=== PATIENT | male | born 1930 | race Caucasian/White ===

== ENCOUNTER 2018-12-13 07:34 | Emergency (ER) | payer MEDICARE, BC ==
--- NOTE | 2018-12-13 07:53 | EDM.PDOC ---
ED HPI GENERAL MEDICAL PROBLEM - General Stated Complaint: ER VISIT Time Seen by Provider: 12/13/18 07:34 Source of Information: Reports: Patient, EMS, EMS Notes Reviewed, Family History Limitations: Reports: No Limitations - History of Present Illness INITIAL COMMENTS - FREE TEXT/NARRATIVE: Patient comes in the emergency department with EMS with complaint of dizziness. Patient was getting out of bed and abruptly became dizzy and needed to sit back down. He states that going from laying to sitting position she became extremely dizzy. When he sat there for a few minutes the dizziness began to resolve however he's never had this happen before so he contacted EMS. He denies any nausea, vomiting, chest pain, shortness of breath, increased swelling, vision changes, lightheadedness, or headache. Patient denies any recent illnesses. Onset: Today, Sudden Severity: Mild Improves with: Reports: None Worsens with: Reports: None Associated Symptoms: Reports: No Other Symptoms - Related Data Allergies Allergy/AdvReac Type Severity Reaction Status Date / Time fluvastatin sodium Allergy Other Verified 12/13/18 08:04 [From Lescol] niacin Allergy Other Verified 12/13/18 08:04 [From Niaspan Extended-Release] simvastatin [From Zocor] Allergy Other Verified 12/13/18 08:04 levofloxacin [From Levaquin] AdvReac Nausea and Verified 12/13/18 08:04 Vomiting Home Meds: Home Meds Multivitamin [Multi-Vitamin Daily] 1 each PO DAILY 10/23/13 [History] [place]-3 Fatty Acids [Fish Oil] 1,000 mg PO DAILY 10/23/13 [History] Potassium Chloride [Klor-Con M20] 20 meq PO DAILY 10/23/13 [History] Pravastatin [Pravachol] 40 mg PO ASDIRECTED 10/23/13 [History] amLODIPine [Norvasc] 5 mg PO BEDTIME 10/23/13 [History] Sennosides [Senna] 1 tab PO DAILY PRN 03/28/14 [History] Warfarin [Coumadin] 5 mg PO ASDIRECTED 03/28/14 [History] Omeprazole [Prilosec] 1 tab PO ACDINNER 05/08/14 [History] Albuterol [Ventolin HFA] 1 - 2 puff INH Q4H PRN 11/13/14 [History] Carvedilol 12.5 mg PO BID 11/13/14 [History] Furosemide 20 mg PO DAILY 11/13/14 [History] Sucralfate [Carafate] 1 tab PO DAILY 11/13/14 [History] Budesonide/Formoterol Fumarate [Symbicort 80-4.5 Mcg Inhaler] 2 puff INH BID [History] Dextran 70/Hypromellose [Artificial Tears] 1 drop EYEBOTH Q4H PRN 05/21/16 [ History] Ferrous Sulfate 65 mg PO DAILY 05/21/16 [History] Lisinopril [Prinivil] 20 mg PO DAILY 05/21/16 [History] Oxybutynin 5 mg PO DAILY 05/21/16 [History] Phytonadione [Vitamin K] 100 mcg PO DAILY 05/21/16 [History] Diclofenac Sodium [Voltaren 1%] 100 gm TOP ASDIRECTED PRN 08/31/18 [History] Dicyclomine [Bentyl] 10 mg PO ASDIRECTED 08/31/18 [History] Lidocaine 5% [Lidoderm 5%] 1 patch TOP DAILY PRN 08/31/18 [History] Past Medical History HEENT History: Reports: Cataract, Other (See Below) Other HEENT History: PINGUECULA (BENIGN THIN GROWTH OF TISSUE OVER SCLERA). 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 MYOPIA. ASTIGMATISM Cardiovascular History: Reports: Afib, CAD, Heart Failure, High Cholesterol, Hypertension, Pulmonary Hypertension Other Cardiovascular History: STENOSIS OF LEFT CAROTID ARTERY. ENDOCARDITIS. VENOUS INSUFFICIANCY. AORTIC STENOSIS Respiratory History: Reports: Asthma, COPD, Sleep Apnea, SOB Other Respiratory History: PULMONARY HYPERINFLATION Other Gastrointestinal History: SMALL BOWEL OBSTRUCTION. HERNIA. DIARRHEA Genitourinary History: Other Genitourinary History: BPH (BENIGN PROSTATIC HYPERPLASIA). CHRONIC KIDNEY DISEASE, STAGE 2 (MILD). MALIGNANT NEOPLASM PROSTATE Musculoskeletal History: Reports: Back Pain, Chronic Other Musculoskeletal History: FACET HYPERTROPHY OF LUMBAR REGION. LUMBAR DEGENERATIVE DISC DISEASE Neurological History: Reports: CVA Other Neuro History: HERNIA CEREBRI Psychiatric History: Reports: Other (See Below) Other Psychiatric History: PAIN MEDICATION AGREEMENT Endocrine/Metabolic History: Reports: Obesity/BMI 30+, Other (See Below) Other Endocrine/Metabolic History: PREDIABETES Hematologic History: Reports: Anemia Other Hematologic History: VITAMIN D DEFICIENCY. LEUKOCYTOSIS Oncologic (Cancer) History: Reports: Prostate Other Oncologic History: HX OF CHEMOTHERAPY. HX OF RADIATION THERAPY. BASAL CELL CARCINOMA OF SKIN. RECTAL CANCER - Past Surgical History Cardiovascular Surgical History: Reports: Coronary Artery Bypass GI Surgical History: Reports: Cholecystectomy, Colonoscopy, Colostomy, EGD, Hernia Repair/Other Social & Family History - Family History Family Medical History: Noncontributory - Caffeine Use Caffeine Use: ED ROS GENERAL - Review of Systems Review Of Systems: See Below Constitutional: Reports: No Symptoms HEENT: Reports: No Symptoms Respiratory: Reports: No Symptoms Cardiovascular: Reports: No Symptoms Endocrine: Reports: No Symptoms GI/Abdominal: Reports: No Symptoms : Reports: No Symptoms Musculoskeletal: Reports: No Symptoms Skin: Reports: No Symptoms Neurological: Reports: Dizziness. Denies: Headache, Numbness, Paresthesia, Pre- Existing Deficit, Seizure, Syncope, Tingling, Tremors, Trouble Speaking, Difficulty Walking, Weakness Psychiatric: Reports: No Symptoms Hematologic/Lymphatic: Reports: No Symptoms Immunologic: Reports: No Symptoms ED EXAM, GENERAL - Physical Exam Exam: See Below Exam Limited By: No Limitations General Appearance: Alert, WD/WN, No Apparent Distress Ear Exam: Right Ear: TM Bulging Nose: Normal Inspection, Normal Mucosa Throat/Mouth: Normal Inspection, Normal Lips Head: Atraumatic, Normocephalic Neck: Normal Inspection, Supple, Non-Tender Respiratory/Chest: No Respiratory Distress, Lungs Clear, No Accessory Muscle Use , Chest Non-Tender Cardiovascular: Normal Peripheral Pulses, Regular Rate, Rhythm Back Exam: Normal Inspection, Full Range of Motion Extremities: Normal Inspection, Normal Range of Motion, Normal Capillary Refill Neurological: Alert, Oriented Psychiatric: Normal Affect, Normal Mood Skin Exam: Warm, Dry, Intact, Normal Color Course - Orders/Labs/Meds Orders: Active Orders 24 hr Category Date Time Status Fluticasone Propionate [Flonase] Med 12/13/18 08:00 Active 1 gm NASBOTH DAILY Medication Orders Fluticasone Propionate (Flonase) 1 gm NASBOTH DAILY EDGAR Meds: Medications Generic Name Dose Route Start Last Admin Trade Name Freq PRN Reason Stop Dose Admin Fluticasone Propionate 1 gm 12/13/18 08:00 Flonase NASBOTH DAILY EDGAR Discontinued Medications Generic Name Dose Route Start Last Admin Trade Name Freq PRN Reason Stop Dose Admin Meclizine HCl 25 mg 12/13/18 07:45 12/13/18 07:54 Antivert PO 12/13/18 07:46 25 mg ONETIME ONE Administration Ondansetron HCl 4 mg 12/13/18 07:52 12/13/18 07:55 Zofran Odt PO 12/13/18 07:53 4 mg ONETIME ONE Administration - Re-Assessments/Exams Free Text/Narrative Re-Assessment/Exam: 12/13/18 08:37 pt feels better and is not dizzy. Able to get up out of bed without difficult and walked on his own to the bathroom. He ate breakfast and tolerated well without complications. Pt would like to go home feels he is back to his baseline. Departure - Departure Time of Disposition: 08:40 Disposition: Home, Self-Care 01 Condition: Good Clinical Impression: Vertigo Acute middle ear effusion Qualifiers: Laterality: bilateral Qualified Code(s): H65.193 - Other acute nonsuppurative otitis media, bilateral - Discharge Information *PRESCRIPTION DRUG MONITORING PROGRAM REVIEWED*: Not Applicable *COPY OF PRESCRIPTION DRUG MONITORING REPORT IN PATIENT CEE: Not Applicable Instructions: Vertigo, [id number], Motion Sickness, Dizziness, [id number] Referrals: Yolanda Nassar, [Primary Care Provider] - Additional Instructions: 1. Ensure you are not dizzy prior to standing up to help prevent falls 2. Take flonase 2 times a day for 4 days to help reduce the fluid behind the ear 3. Can take meclizine 25mg tab every 6 hours as needed if dizziness/vertigo returns 4. Activity and diet as tolerated 5. Rise from the laying and seated position slowly to help prevent dizziness 6. If dizziness returns see your PCP for a referral to physical therapy 7. Follow up as needed 8. Call with any questions or concerns - Problem List Review Problem List Initiated/Reviewed/Updated: Yes - My Orders Last 24 Hours: My Active Orders 12/13/18 08:00 Fluticasone Propionate [Flonase] 1 gm NASBOTH DAILY - Assessment/Plan Last 24 Hours: My Active Orders 12/13/18 08:00 Fluticasone Propionate [Flonase] 1 gm NASBOTH DAILY Assessment:: 1. Dizziness Plan: 1. Meclizine and zofran was ordered to help with dizziness 2. Breakfast was ordered 3.
[2018-12-13] MEDS: Meclizine 25 MG Tab PO ONE (07:54)
[2018-12-13] MEDS: Ondansetron 4 MG Tab.DIS PO ONE (07:55)
[2018-12-13] MEDS ORDERED: Meclizine 25 MG Tab ONE (08:44)
[2018-12-13] MEDS: Fluticasone Propionate Nasal Spray 16 GM Bottle NASBOTH SCH (08:50)
[2018-12-13 11:44] VITALS: BP 148/90
== END 2018-12-13 09:05 | disposition home or self-care (01) ==
LOC: VM.ED 07:34
DX: R42 Dizziness and giddiness (principal); H65.193 Other acute nonsuppurative otitis media, bilateral; I11.0 Hypertensive heart disease with heart failure; I50.9 Heart failure, unspecified; I48.91 Unspecified atrial fibrillation; E78.00 Pure hypercholesterolemia, unspecified; J44.9 Chronic obstructive pulmonary disease, unspecified; Z86.73 Personal history of transient ischemic attack (TIA), and cerebral infarction without residual deficits; Z79.01 Long term (current) use of anticoagulants; Z79.899 Other long term (current) drug therapy; Z88.1 Allergy status to other antibiotic agents; Z88.8 Allergy status to other drugs, medicaments and biological substances
CPT/HCPCS: 99283-GF; 99284; A9270-GY

== ENCOUNTER 2019-03-25 07:16 | Observation (INO) | payer MEDICARE, BC ==
[2019-03-25] MEDS ORDERED: Carvedilol 12.5 MG Tab PO ONE (07:46)
--- NOTE | 2019-03-25 07:58 | EDM.PDOC ---
ED HPI GENERAL MEDICAL PROBLEM - General Chief Complaint: Cardiovascular Problem Stated Complaint: HIGH HEART RATE Time Seen by Provider: 03/25/19 07:20 Source of Information: Reports: Patient History Limitations: Reports: No Limitations - History of Present Illness INITIAL COMMENTS - FREE TEXT/NARRATIVE: Pt. presents to ER with complaints of rapid heart rate and chest pain that lasted approx. 5 min. Pt. states that the symptoms lasted approx. 5 min and woke him from his sleep. He states that he has a history of a-fib and is anticoagulated with coumadin. He states that he is on coreg for rate control. He states that the chest pain or palpitations both resolved prior to arrival to ER. He states that the chest pain did not radiate into jaw, arms, neck or back. He was not short of breath. He states that he has has symptoms like this in the past but they have resolved without any intervention or visit to ER. He states that the last time this happened was approx. 1 month ago. He has not seen cardiology or had any follow-up since this event. Onset: Today Location: Reports: Chest Quality: Reports: Ache Severity: Moderate - Related Data Allergies Allergy/AdvReac Type Severity Reaction Status Date / Time fluvastatin sodium Allergy Other Verified 12/13/18 08:04 [From Lescol] niacin Allergy Other Verified 12/13/18 08:04 [From Niaspan Extended-Release] simvastatin [From Zocor] Allergy Other Verified 12/13/18 08:04 levofloxacin [From Levaquin] AdvReac Nausea and Verified 12/13/18 08:04 Vomiting Home Meds: Home Meds Multivitamin [Multi-Vitamin Daily] 1 each PO DAILY 10/23/13 [History] [place]-3 Fatty Acids [Fish Oil] 1,000 mg PO DAILY 10/23/13 [History] Potassium Chloride [Klor-Con M20] 20 meq PO DAILY 10/23/13 [History] Pravastatin [Pravachol] 40 mg PO ASDIRECTED 10/23/13 [History] amLODIPine [Norvasc] 2.5 mg PO DAILY 10/23/13 [History] Sennosides [Senna] 1 tab PO DAILY PRN 03/28/14 [History] Warfarin [Coumadin] 5 mg PO ASDIRECTED 03/28/14 [History] Omeprazole [Prilosec] 1 tab PO ACDINNER 05/08/14 [History] Albuterol [Ventolin HFA] 1 - 2 puff INH Q4H PRN 11/13/14 [History] Carvedilol 12.5 mg PO BID 11/13/14 [History] Furosemide 20 mg PO DAILY 11/13/14 [History] Sucralfate [Carafate] 1 tab PO DAILY 11/13/14 [History] Budesonide/Formoterol Fumarate [Symbicort 80-4.5 Mcg Inhaler] 2 puff INH BID [History] Dextran 70/Hypromellose [Artificial Tears] 1 drop EYEBOTH Q4H PRN 05/21/16 [ History] Ferrous Sulfate 65 mg PO DAILY 05/21/16 [History] Lisinopril [Prinivil] 20 mg PO DAILY 05/21/16 [History] Oxybutynin 5 mg PO DAILY 05/21/16 [History] Phytonadione [Vitamin K] 100 mcg PO DAILY 05/21/16 [History] Diclofenac Sodium [Voltaren 1%] 100 gm TOP ASDIRECTED PRN 08/31/18 [History] Dicyclomine [Bentyl] 10 mg PO QID PRN 08/31/18 [History] Lidocaine 5% [Lidoderm 5%] 1 patch TOP DAILY PRN 08/31/18 [History] Ascorbic Acid [Vitamin C] 250 mg DAILY 03/25/19 [History] Past Medical History HEENT History: Reports: Cataract, Other (See Below) Other HEENT History: PINGUECULA (BENIGN THIN GROWTH OF TISSUE OVER SCLERA). 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 MYOPIA. ASTIGMATISM Cardiovascular History: Reports: Afib, CAD, Heart Failure, High Cholesterol, Hypertension, Pulmonary Hypertension Other Cardiovascular History: STENOSIS OF LEFT CAROTID ARTERY. ENDOCARDITIS. VENOUS INSUFFICIANCY. AORTIC STENOSIS Respiratory History: Reports: Asthma, COPD, Sleep Apnea, SOB Other Respiratory History: PULMONARY HYPERINFLATION Other Gastrointestinal History: SMALL BOWEL OBSTRUCTION. HERNIA. DIARRHEA Genitourinary History: Other Genitourinary History: BPH (BENIGN PROSTATIC HYPERPLASIA). CHRONIC KIDNEY DISEASE, STAGE 2 (MILD). MALIGNANT NEOPLASM PROSTATE Musculoskeletal History: Reports: Back Pain, Chronic Other Musculoskeletal History: FACET HYPERTROPHY OF LUMBAR REGION. LUMBAR DEGENERATIVE DISC DISEASE Neurological History: Reports: CVA Other Neuro History: HERNIA CEREBRI Psychiatric History: Reports: Other (See Below) Other Psychiatric History: PAIN MEDICATION AGREEMENT Endocrine/Metabolic History: Reports: Obesity/BMI 30+, Other (See Below) Other Endocrine/Metabolic History: PREDIABETES Hematologic History: Reports: Anemia Other Hematologic History: VITAMIN D DEFICIENCY. LEUKOCYTOSIS Oncologic (Cancer) History: Reports: Prostate Other Oncologic History: HX OF CHEMOTHERAPY. HX OF RADIATION THERAPY. BASAL CELL CARCINOMA OF SKIN. RECTAL CANCER - Past Surgical History Head Surgeries/Procedures: Reports: None Cardiovascular Surgical History: Reports: Coronary Artery Bypass GI Surgical History: Reports: Cholecystectomy, Colonoscopy, Colostomy, EGD, Hernia Repair/Other Social & Family History - Family History Family Medical History: Noncontributory - Caffeine Use Caffeine Use: ED ROS GENERAL - Review of Systems Review Of Systems: See Below Constitutional: Reports: No Symptoms HEENT: Reports: No Symptoms Respiratory: Reports: No Symptoms Cardiovascular: Reports: Chest Pain, Palpitations Endocrine: Reports: No Symptoms GI/Abdominal: Reports: No Symptoms : Reports: No Symptoms Musculoskeletal: Reports: No Symptoms Skin: Reports: No Symptoms Neurological: Reports: No Symptoms Psychiatric: Reports: No Symptoms Hematologic/Lymphatic: Reports: No Symptoms Immunologic: Reports: No Symptoms ED EXAM, GENERAL - Physical Exam Exam: See Below Exam Limited By: No Limitations General Appearance: Alert, WD/WN, No Apparent Distress Throat/Mouth: Normal Inspection, Normal Lips, Normal Teeth, Normal Gums, Normal Oropharynx, Normal Voice, No Airway Compromise Head: Atraumatic, Normocephalic Neck: Normal Inspection, Supple, Non-Tender, Full Range of Motion Respiratory/Chest: No Respiratory Distress, Lungs Clear, Normal Breath Sounds, No Accessory Muscle Use, Chest Non-Tender Cardiovascular: Normal Peripheral Pulses, No JVD, Systolic Murmur, Irregularly Irregular Peripheral Pulses: 3+: Radial (R) GI/Abdominal: Normal Bowel Sounds, Soft, Non-Tender, No Organomegaly, No Distention, No Mass (Male) Exam: Deferred Rectal (Males) Exam: Deferred Back Exam: Normal Inspection Extremities: Normal Inspection, Normal Range of Motion, Non-Tender, Normal Capillary Refill Neurological: Alert, Oriented, CN II-XII Intact, Normal Cognition, No Motor/ Sensory Deficits Psychiatric: Normal Affect, Normal Mood Skin Exam: Warm, Dry, Intact, No Rash, Pallor EKG INTERPRETATION Rhythm: A-Fib Course - Vital Signs Last Recorded V/S: Last Vital Signs Temp 36.8 C 03/25/19 07:16 Pulse 72 03/25/19 09:27 Resp 16 03/25/19 09:27 BP 165/92 H 03/25/19 09:27 Pulse Ox 92 L 03/25/19 07:16 - Orders/Labs/Meds Orders: Active Orders 24 hr Category Date Time Status Patient Status [ADT] Routine ADT 03/25/19 09:40 Ordered EKG Documentation Completion [RC] STAT Care 03/25/19 07:32 Active UA W/MICROSCOPIC [URIN] Stat Lab 03/25/19 08:26 Ordered Labs: Laboratory Tests 03/25/19 03/25/19 03/25/19 Range/Units 07:19 07:19 07:19 WBC 16.9 H (4.0-10.0) x10^3/uL RBC 5.54 (4.5-6.0) x10^6/uL Hgb 15.6 (14.0-18.0) g/dL Hct 44.9 (40.0-52.0) % MCV 81.0 D (78.0-93.0) fL MCH 28.2 (26.0-32.0) pg MCHC 34.7 (32.0-36.0) g/dL RDW Coeff of Roberta 14.9 (10.0-15.0) % Plt Count 244 (130-400) x10^3/uL Add Manual Diff Yes Neutrophils % (Manual) 46 L (50-80) % Lymphocytes % (Manual) 45 (25-50) % Monocytes % (Manual) 4 (2-11) % Eosinophils % (Manual) 1 (0-4) % Metamyelocytes % 3 H (0) % Myelocytes % 1 H (0) % Hypersegmented Neuts Few H Platelet Estimate Adequate PT 18.2 H (10.0-12.8) SEC INR 1.6 L (2.0-3.5) Sodium 141 (136-145) mmol/L Potassium 3.2 L (3.5-5.1) mmol/L Chloride 101 (98-107) mmol/L Carbon Dioxide 29 (21-32) mmol/L Anion Gap 14.2 (10-20) mmol/L BUN 16 (7-18) mg/dL Creatinine 0.8 (0.70-1.30) mg/dL Est Cr Clr Drug Dosing TNP Estimated GFR (MDRD) > 60 Glucose 145 H (74-106) mg/dL Lactic Acid (0.4-2.0) mmol/L Calcium 8.9 (8.5-10.1) mg/dL Corrected Calcium 8.98 (8.5-10.1) mg/dL Phosphorus 3.4 (2.6-4.7) mg/dL Magnesium 1.8 (1.8-2.4) mg/dL Total Bilirubin 1.2 H (0.2-1.0) mg/dL AST 12 L (15-37) U/L ALT 22 (16-63) U/L Alkaline Phosphatase 74 (46-116) U/L Troponin I < 0.017 (<=0.056) ng/mL Total Protein 7.8 (6.4-8.2) g/dL Albumin 3.9 (3.4-5.0) g/dL Globulin 3.9 Albumin/Globulin Ratio 1.00 TSH, Ultra Sensitive 1.270 (0.358-3.74) uIU/mL 03/25/ Range/Units 07:19 WBC (4.0-10.0) x10^3/uL RBC (4.5-6.0) x10^6/uL Hgb (14.0-18.0) g/dL Hct (40.0-52.0) % MCV (78.0-93.0) fL MCH (26.0-32.0) pg MCHC (32.0-36.0) g/dL RDW Coeff of Roberta (10.0-15.0) % Plt Count (130-400) x10^3/uL Add Manual Diff Neutrophils % (Manual) (50-80) % Lymphocytes % (Manual) (25-50) % Monocytes % (Manual) (2-11) % Eosinophils % (Manual) (0-4) % Metamyelocytes % (0) % Myelocytes % (0) % Hypersegmented Neuts Platelet Estimate PT (10.0-12.8) SEC INR (2.0-3.5) Sodium (136-145) mmol/L Potassium (3.5-5.1) mmol/L Chloride (98-107) mmol/L Carbon Dioxide (21-32) mmol/L Anion Gap (10-20) mmol/L BUN (7-18) mg/dL Creatinine (0.70-1.30) mg/dL Est Cr Clr Drug Dosing Estimated GFR (MDRD) Glucose (74-106) mg/dL Lactic Acid 1.5 (0.4-2.0) mmol/L Calcium (8.5-10.1) mg/dL Corrected Calcium (8.5-10.1) mg/dL Phosphorus (2.6-4.7) mg/dL Magnesium (1.8-2.4) mg/dL Total Bilirubin (0.2-1.0) mg/dL AST (15-37) U/L ALT (16-63) U/L Alkaline Phosphatase (46-116) U/L Troponin I (<=0.056) ng/mL Total Protein (6.4-8.2) g/dL Albumin (3.4-5.0) g/dL Globulin Albumin/Globulin Ratio TSH, Ultra Sensitive (0.358-3.74) uIU/mL Meds: Medications Discontinued Medications Generic Name Dose Route Start Last Admin Trade Name Freq PRN Reason Stop Dose Admin Carvedilol 12.5 mg 03/25/19 07:46 03/25/19 08:14 Coreg PO 03/25/19 07:47 12.5 mg ONETIME ONE Administration Departure - Departure Time of Disposition: 09:46 Disposition: Refer to Observation Clinical Impression: Palpitations, Chronic atrial fibrillation with RVR, Subtherapeutic international normalized ratio (INR) - Discharge Information Referrals: Yolanda Nassar DO [Primary Care Provider] - Forms: ED Department Discharge - Problem List Review Problem List Initiated/Reviewed/Updated: Yes - My Orders Last 24 Hours: My Active Orders 03/25/19 07:32 EKG Documentation Completion [RC] STAT 03/25/19 08:26 UA W/MICROSCOPIC [URIN] Stat 03/25/19 09:40 Patient Status [ADT] Routine - Assessment/Plan Last 24 Hours: My Active Orders 03/25/19 07:32 EKG Documentation Completion [RC] STAT 03/25/19 08:26 UA W/MICROSCOPIC [URIN] Stat 03/25/19 09:40 Patient Status [ADT] Routine Plan: I spoke with Dr. Garcia, [facility]. She advised stopping to Coreg and starting Toprol XL 50mg. every AM and 25mg at night. To note, he was given his Coreg this AM already, so will start the Toprol XL tonight. He will be bridged with lovenox as his coagulation is subtheraputic. Dr. Garcia also suggested oral lopressor 25mg PRN if he is experiencing palpitations as home. Pt. will be admitted observation. Dr. Nassar will be admitting the patient and will round on him early this afternoon. Pt. is a code 1.
[2019-03-25 08:16] LABS: CHLORIDE,CL 101 mmol/L (98-107); SODIUM,NA 141 mmol/L (136-145)
[2019-03-25 08:17] LABS: ANION GAP 14.2 mmol/L (10-20)
--- NOTE | 2019-03-25 08:27 | CR ---
[id number] RAD/RAD Chest PA or AP 1V EXAM: RAD Chest PA or AP 1V INDICATION: TACHYCARDIA,CHEST PAIN. COMPARISON: August 31, 2018. DISCUSSION: Cardiomediastinal silhouette is unchanged in size and contour. No infiltrate, effusion, pneumothorax, or edema. IMPRESSION: No acute findings. Saw Myers MD 03/25/19 0826 Thank you for allowing us to participate in the care of your patient.
[2019-03-25] MEDS ORDERED: DICYCLOMINE 10 MG PO PRN (10:08)
[2019-03-25] MEDS ORDERED: Sennosides 8.6 MG Tab PO PRN (10:08)
[2019-03-25] MEDS ORDERED: amLODIPine 2.5 MG Tab PO SCH (10:09)
[2019-03-25] MEDS ORDERED: Potassium Chloride 20 MEQ Tab.ER PO SCH ×2 (10:15→13:15)
[2019-03-25] MEDS ORDERED: Furosemide 20 MG Tab PO SCH (10:15)
[2019-03-25] MEDS: Enoxaparin 100 MG/1 ML Syringe SUBCUT SCH ×2 (11:18→19:47)
[2019-03-25] MEDS: Ferrous Sulfate 325 MG Tab PO SCH (11:18)
[2019-03-25] MEDS: Oxybutynin 5 MG Tab PO SCH (11:19)
[2019-03-25] MEDS: Ascorbic Acid 500 MG Tab PO SCH (11:19)
[2019-03-25] MEDS ORDERED: FUROSEMIDE 40 MG PO SCH (11:20)
[2019-03-25] MEDS ORDERED: amLODIPine 2.5 MG Tab PO ONE (12:00)
[2019-03-25] MEDS: LISINOPRIL 40 MG PO SCH (12:06)
[2019-03-25] MEDS: SUCRALFATE 1 GM PO SCH (12:06)
--- NOTE | 2019-03-25 16:27 | PCM.HP ---
H&P History of Present Illness - General Date of Service: 03/25/19 Admit Problem/Dx: Admission Diagnosis/Problem Admission Diagnosis/Problem Atrial fibrillation with rapid ventricular response Source of Information: Patient History Limitations: Reports: No Limitations - History of Present Illness Initial Comments - Free Text/Narative: Patient presented to the ER today for complaints of chest pain and racing heart rate, decision made to admit for observation. Patient states he woke up at 4 AM with a "bounding heart rate" which lasted for 5 minutes, followed up "sharp chest pain" which last for another 5 minutes. Patient states that his heart was racing so fast that he was unable to take his pulse at the time. He states he felt confused following this event and when he tried to get up to go to the bathroom, he was very lightheaded. He then decided to drive himself into the ER to be further evaluated. Since the episode this morning, patient denies any further racing HR or chest pain. Patient states that he did not take any medication for his chest pain. Patient states he has been taking his medications as they are prescribed, but was previously off of his Coumadin for awhile because he was supposed to have surgery last week, which got canceled, but he restarted him Coumadin a couple of days ago. Onset of Symptoms: Reports: Today Symptom Onset Date: 03/25/19 Symptom Onset Time: 04:00 Duration of Symptoms: Reports: Minutes: (5 min. increased HR; 5 min. of chest pain) Location: Reports: Chest Quality: Reports: Sharp Severity: Severe Improves with: Reports: None Worsens with: Reports: None Context: Reports: Rest (patient states he was sleeping when this event began) Associated Symptoms: Reports: Confusion, Chest Pain - Related Data Allergies/Adverse Reactions: Allergies Allergy/AdvReac Type Severity Reaction Status Date / Time levofloxacin [From Levaquin] Allergy Unknown Other Verified 03/25/19 11:56 fluvastatin sodium AdvReac Unknown Other Verified 03/25/19 11:56 [From Lescol] niacin AdvReac Unknown Other Verified 03/25/19 11:56 [From Niaspan Extended-Release] simvastatin [From Zocor] AdvReac Unknown Other Verified 03/25/19 11:56 Home Medications: Home Meds Multivitamin [Multi-Vitamin Daily] 1 each PO DAILY 10/23/13 [History] Cal Nev Ari-3 Fatty Acids [Fish Oil] 1,000 mg PO DAILY 10/23/13 [History] Potassium Chloride [Klor-Con M20] 20 meq PO DAILY 10/23/13 [History] Pravastatin [Pravachol] 40 mg PO MOTH@199910/23/13 [History] amLODIPine [Norvasc] 5 mg PO DAILY 10/23/13 [History] Sennosides [Senna] 8.6 mg PO DAILY PRN 03/28/14 [History] Warfarin [Coumadin] 5 mg PO SUTUWETHFRSA@199903/28/14 [History] Omeprazole [Prilosec] 1 tab PO ACDINNER 05/08/14 [History] Albuterol [Ventolin HFA] 1 - 2 puff INH Q4H PRN 11/13/14 [History] Carvedilol 12.5 mg PO BID 11/13/14 [History] Furosemide 20 mg PO DAILY 11/13/14 [History] Sucralfate [Carafate] 1 gram PO DAILY 11/13/14 [History] Budesonide/Formoterol Fumarate [Symbicort 80-4.5 Mcg Inhaler] 2 puff INH BID [History] Dextran 70/Hypromellose [Artificial Tears] 1 drop EYEBOTH Q4H PRN 05/21/16 [ History] Lisinopril [Prinivil] 20 mg PO DAILY 05/21/16 [History] Oxybutynin 5 mg PO DAILY 05/21/16 [History] Phytonadione [Vitamin K] 100 mcg PO DAILY 05/21/16 [History] Diclofenac Sodium [Voltaren 1%] 1 dose TOP ASDIRECTED PRN 08/31/18 [History] Dicyclomine [Bentyl] 10 mg PO QID PRN 08/31/18 [History] Lidocaine 5% [Lidoderm 5%] 1 patch TOP DAILY PRN 08/31/18 [History] Ascorbic Acid [Vitamin C] 250 mg PO DAILY 03/25/19 [History] Ferrous Sulfate [Iron] 325 mg PO DAILY 03/25/19 [History] Lactulose [Chronulac] 15 ml PO DAILY PRN 03/25/19 [History] Warfarin [Coumadin] 2.5 mg PO MO@199903/25/19 [History] Past Medical History HEENT History: Reports: Cataract, Other (See Below) Other HEENT History: PINGUECULA (BENIGN THIN GROWTH OF TISSUE OVER SCLERA). 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 MYOPIA. ASTIGMATISM Cardiovascular History: Reports: Afib, CAD, Heart Failure, High Cholesterol, Hypertension, Pulmonary Hypertension Other Cardiovascular History: STENOSIS OF LEFT CAROTID ARTERY. ENDOCARDITIS. VENOUS INSUFFICIANCY. AORTIC STENOSIS Respiratory History: Reports: Asthma, COPD, Sleep Apnea, SOB Other Respiratory History: PULMONARY HYPERINFLATION Other Gastrointestinal History: SMALL BOWEL OBSTRUCTION. HERNIA. DIARRHEA Genitourinary History: Other Genitourinary History: BPH (BENIGN PROSTATIC HYPERPLASIA). CHRONIC KIDNEY DISEASE, STAGE 2 (MILD). MALIGNANT NEOPLASM PROSTATE Musculoskeletal History: Reports: Back Pain, Chronic Other Musculoskeletal History: FACET HYPERTROPHY OF LUMBAR REGION. LUMBAR DEGENERATIVE DISC DISEASE Neurological History: Reports: CVA Other Neuro History: HERNIA CEREBRI Psychiatric History: Reports: Other (See Below) Other Psychiatric History: PAIN MEDICATION AGREEMENT Endocrine/Metabolic History: Reports: Obesity/BMI 30+, Other (See Below) Other Endocrine/Metabolic History: PREDIABETES Hematologic History: Reports: Anemia Other Hematologic History: VITAMIN D DEFICIENCY. LEUKOCYTOSIS Oncologic (Cancer) History: Reports: Prostate Other Oncologic History: HX OF CHEMOTHERAPY. HX OF RADIATION THERAPY. BASAL CELL CARCINOMA OF SKIN. RECTAL CANCER - Past Surgical History Head Surgeries/Procedures: Reports: None Cardiovascular Surgical History: Reports: Coronary Artery Bypass GI Surgical History: Reports: Cholecystectomy, Colonoscopy, Colostomy, EGD, Hernia Repair/Other Social & Family History - Family History Family Medical History: Noncontributory (Both parents .) - Tobacco Use Smoking Status *Q: Never Smoker - Caffeine Use Caffeine Use: Reports: Coffee - Alcohol Use Alcohol Use in Last Twelve Months: No - Recreational Drug Use Recreational Drug Use: No H&P Review of Systems - Review of Systems: Review Of Systems: See Below General: Reports: No Symptoms HEENT: Reports: No Symptoms Pulmonary: Reports: No Symptoms Cardiovascular: Reports: Chest Pain, Palpitations, Orthopnea, Edema, Lightheadedness Gastrointestinal: Reports: Abdominal Pain Genitourinary: Reports: Incontinence Musculoskeletal: Reports: Shoulder Pain (Left shoulder pain; pts states has been ongoing for 8 months) Skin: Reports: No Symptoms Psychiatric: Reports: No Symptoms Neurological: Reports: Confusion Hematologic/Lymphatic: Reports: No Symptoms Immunologic: Reports: No Symptoms Exam - Exam Exam: See Below - Vital Signs Vital Signs: Last Vital Signs Temp 97.7 F 03/25/19 14:00 Pulse 65 03/25/19 14:00 Resp 16 03/25/19 09:27 BP 114/57 L 03/25/19 14:00 Pulse Ox 98 03/25/19 14:00 Weight: 103.873 kg - Exam General: Alert, Oriented, Cooperative HEENT: Conjunctiva Clear, EOMI, Hearing Intact, Mucosa Moist & [place], Nares Patent, Normal Nasal Septum, Pupils Equal Neck: Supple, Trachea Midline, +2 Carotid Pulse wo Bruit, Full Range of Motion Lungs: Clear to Auscultation, Normal Respiratory Effort Cardiovascular: Regular Rate, Irregular Rhythm (atrial fibrillation) GI/Abdominal Exam: Normal Bowel Sounds, Soft, Non-Tender, Other (colostomy in place) Back Exam: Normal Inspection, Full Range of Motion Extremities: Normal Inspection, Normal Range of Motion, Non-Tender, Normal Capillary Refill, Pedal Edema (mild edema to right ankle) Peripheral Pulses: 2+: Carotid (L), Carotid (R), Radial (L), Radial (R), Popliteal (L), Popliteal (R), Dorsalis Pedis (L), Dorsalis Pedis (R) Skin: Warm, Dry, Intact Neurological: Normal Speech, Normal Tone Neuro Extensive - Mental Status: Alert, Oriented x3, Normal Mood/Affect, Normal Cognition, Memory Intact Psychiatric: Alert, Normal Affect, Normal Mood - Patient Data Lab Results Last 24 hrs: Laboratory Results - last 24 hr 03/25/19 03/25/19 03/25/19 Range/Units 07:19 07:19 07:19 WBC 16.9 H (4.0-10.0) x10^3/uL RBC 5.54 (4.5-6.0) x10^6/uL Hgb 15.6 (14.0-18.0) g/dL Hct 44.9 (40.0-52.0) % MCV 81.0 D (78.0-93.0) fL MCH 28.2 (26.0-32.0) pg MCHC 34.7 (32.0-36.0) g/dL RDW Coeff of Roberta 14.9 (10.0-15.0) % Plt Count 244 (130-400) x10^3/uL Add Manual Diff Yes Neutrophils % (Manual) 46 L (50-80) % Lymphocytes % (Manual) 45 (25-50) % Monocytes % (Manual) 4 (2-11) % Eosinophils % (Manual) 1 (0-4) % Metamyelocytes % 3 H (0) % Myelocytes % 1 H (0) % Hypersegmented Neuts Few H Platelet Estimate Adequate PT 18.2 H (10.0-12.8) SEC INR 1.6 L (2.0-3.5) Sodium 141 (136-145) mmol/L Potassium 3.2 L (3.5-5.1) mmol/L Chloride 101 (98-107) mmol/L Carbon Dioxide 29 (21-32) mmol/L Anion Gap 14.2 (10-20) mmol/L BUN 16 (7-18) mg/dL Creatinine 0.8 (0.70-1.30) mg/dL Est Cr Clr Drug Dosing TNP Estimated GFR (MDRD) > 60 Glucose 145 H (74-106) mg/dL Lactic Acid (0.4-2.0) mmol/L Calcium 8.9 (8.5-10.1) mg/dL Corrected Calcium 8.98 (8.5-10.1) mg/dL Phosphorus 3.4 (2.6-4.7) mg/dL Magnesium 1.8 (1.8-2.4) mg/dL Total Bilirubin 1.2 H (0.2-1.0) mg/dL AST 12 L (15-37) U/L ALT 22 (16-63) U/L Alkaline Phosphatase 74 (46-116) U/L Troponin I < 0.017 (<=0.056) ng/mL Total Protein 7.8 (6.4-8.2) g/dL Albumin 3.9 (3.4-5.0) g/dL Globulin 3.9 Albumin/Globulin Ratio 1.00 TSH, Ultra Sensitive 1.270 (0.358-3.74) uIU/mL Urine Color (YELLOW) Urine Appearance (CLEAR) Urine pH (5.0-8.0) Ur Specific [place] Urine Protein (NEGATIVE) mg/dL Urine Glucose (UA) (NEGATIVE) mg/dL Urine Ketones (NEGATIVE) mg/dL Urine Occult Blood (NEGATIVE) Urine Nitrite (NEGATIVE) Urine Bilirubin (NEGATIVE) Urine Urobilinogen (0.2) EU/dL Ur Leukocyte Esterase (NEGATIVE) Urine RBC (NOT SEEN) /HPF Urine WBC (NOT SEEN) /HPF Ur Squamous Epith Cells (NEGATIVE) /HPF Urine Bacteria (NEGATIVE) /HPF Urine Mucus (NEGATIVE) /LPF 03/25/19 03/25/19 03/25/19 Range/Units 07:19 12:00 13:21 WBC (4.0-10.0) x10^3/uL RBC (4.5-6.0) x10^6/uL Hgb (14.0-18.0) g/dL Hct (40.0-52.0) % MCV (78.0-93.0) fL MCH (26.0-32.0) pg MCHC (32.0-36.0) g/dL RDW Coeff of Roberta (10.0-15.0) % Plt Count (130-400) x10^3/uL Add Manual Diff Neutrophils % (Manual) (50-80) % Lymphocytes % (Manual) (25-50) % Monocytes % (Manual) (2-11) % Eosinophils % (Manual) (0-4) % Metamyelocytes % (0) % Myelocytes % (0) % Hypersegmented Neuts Platelet Estimate PT (10.0-12.8) SEC INR (2.0-3.5) Sodium (136-145) mmol/L Potassium (3.5-5.1) mmol/L Chloride (98-107) mmol/L Carbon Dioxide (21-32) mmol/L Anion Gap (10-20) mmol/L BUN (7-18) mg/dL Creatinine (0.70-1.30) mg/dL Est Cr Clr Drug Dosing Estimated GFR (MDRD) Glucose (74-106) mg/dL Lactic Acid 1.5 (0.4-2.0) mmol/L Calcium (8.5-10.1) mg/dL Corrected Calcium (8.5-10.1) mg/dL Phosphorus (2.6-4.7) mg/dL Magnesium (1.8-2.4) mg/dL Total Bilirubin (0.2-1.0) mg/dL AST (15-37) U/L ALT (16-63) U/L Alkaline Phosphatase (46-116) U/L Troponin I < 0.017 (<=0.056) ng/mL Total Protein (6.4-8.2) g/dL Albumin (3.4-5.0) g/dL Globulin Albumin/Globulin Ratio TSH, Ultra Sensitive (0.358-3.74) uIU/mL Urine Color Yellow (YELLOW) Urine Appearance Clear (CLEAR) Urine pH 7.0 (5.0-8.0) Ur Specific [place] 1.015 Urine Protein Negative (NEGATIVE) mg/dL Urine Glucose (UA) 100 H (NEGATIVE) mg/dL Urine Ketones Negative (NEGATIVE) mg/dL Urine Occult Blood Trace-intact H (NEGATIVE) Urine Nitrite Negative (NEGATIVE) Urine Bilirubin Negative (NEGATIVE) Urine Urobilinogen 1.0 (0.2) EU/dL Ur Leukocyte Esterase Negative (NEGATIVE) Urine RBC 5-10 H (NOT SEEN) /HPF Urine WBC Not seen (NOT SEEN) /HPF Ur Squamous Epith Cells Rare (NEGATIVE) /HPF Urine Bacteria Not seen (NEGATIVE) /HPF Urine Mucus Rare H (NEGATIVE) /LPF Result Diagrams: 03/25/19 07:19 03/25/19 07:19 - Problem List (1) Coronary artery disease SNOMED Code(s): 42307421 ICD Code: I25.10 - ATHSCL HEART DISEASE OF [place] CORONARY ARTERY W/O ANG PCTRS Status: Chronic Priority: Medium Current Visit: Yes Qualifiers: Coronary Disease-Associated Artery/Lesion type: [place] artery [place] vs. transplanted heart: [place] heart Associated angina: with other forms of angina Qualified Code(s): I25.118 - Atherosclerotic heart disease of [place] coronary artery with other forms of angina pectoris (2) CLL (chronic lymphocytic leukemia) SNOMED Code(s): 83290839 ICD Code: C91.90 - LYMPHOID LEUKEMIA, UNSPECIFIED NOT HAVING ACHIEVED REMISSION Status: Chronic Priority: Medium Current Visit: Yes (3) Abdominal pain SNOMED Code(s): 06671052 ICD Code: R10.9 - UNSPECIFIED ABDOMINAL PAIN Status: Chronic Priority: Medium Current Visit: Yes Qualifiers: Abdominal location: unspecified location Qualified Code(s): R10.9 - Unspecified abdominal pain (4) Asthma SNOMED Code(s): 199647735 ICD Code: J45.909 - UNSPECIFIED ASTHMA, UNCOMPLICATED Status: Chronic Priority: Low Current Visit: Yes Qualifiers: Asthma severity: unspecified severity Asthma persistence: unspecified Asthma complication type: unspecified Qualified Code(s): J45.909 - Unspecified asthma, uncomplicated (5) Aortic stenosis SNOMED Code(s): 78962068 ICD Code: I35.0 - NONRHEUMATIC AORTIC (VALVE) STENOSIS Status: Chronic Priority: Medium Current Visit: Yes Qualifiers: Cardiac valve disease etiology: etiology unspecified Qualified Code(s): I35.0 - Nonrheumatic aortic (valve) stenosis (6) Diet-controlled diabetes mellitus SNOMED Code(s): 659336831, 162517432 ICD Code: E11.9 - TYPE 2 DIABETES MELLITUS WITHOUT COMPLICATIONS Status: Chronic Priority: Medium Current Visit: Yes (7) CKD (chronic kidney disease) stage 2, GFR 60-89 ml/min SNOMED Code(s): 196037363 ICD Code: N18.2 - CHRONIC KIDNEY DISEASE, STAGE 2 (MILD) Status: Chronic Priority: Medium Current Visit: Yes (8) 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 SNOMED Code(s): 538980744 ICD Code: K94.09 - OTHER COMPLICATIONS OF COLOSTOMY; K46.9 - UNSPECIFIED ABDOMINAL HERNIA WITHOUT OBSTRUCTION OR GANGRENE Status: Acute Priority: Medium Current Visit: Yes (9) Chronic atrial fibrillation with RVR SNOMED Code(s): 603766642, 541397349705883 ICD Code: I48.2 - CHRONIC ATRIAL FIBRILLATION Status: Chronic Priority: High Current Visit: Yes (10) Palpitations SNOMED Code(s): 69884950 ICD Code: R00.2 - PALPITATIONS Status: Acute Priority: High Current Visit: Yes (11) Subtherapeutic international normalized ratio (INR) SNOMED Code(s): 548476581, 250029839 ICD Code: R79.1 - ABNORMAL COAGULATION PROFILE Status: Acute Priority: High Current Visit: Yes (12) CHF, Congestive heart failure SNOMED Code(s): 73635780 ICD Code: I50.9 - HEART FAILURE, UNSPECIFIED Status: Chronic Priority: Medium Current Visit: No (13) Hypertensive heart disease SNOMED Code(s): 75622058 ICD Code: I11.9 - HYPERTENSIVE HEART DISEASE WITHOUT HEART FAILURE Status: Chronic Priority: Medium Current Visit: No Problem List Initiated/Reviewed/Updated: Yes Orders Last 24hrs: Active Orders 24 hr Category Date Time Status Patient Status [ADT] Routine ADT 03/25/19 09:40 Active Cardiac Monitoring [RC] 06,10,14,18,22,02 Care 03/25/19 10:18 Active Intake and Output [RC] 06,18 Care 03/25/19 10:18 Active Up With Assistance [RC] 08,20 Care 03/25/19 10:18 Active Vital Signs [RC] 06,10,14,18,22,02 Care 03/25/19 10:18 Active Heart Healthy Diet [DIET] Diet 03/25/19 Lunch Active BASIC METABOLIC PANEL,BMP [CHEM] AM Lab 03/26/19 05:15 Ordered CBC W/O DIFF,HEMOGRAM [HEME] Q3D Lab 03/26/19 07:00 Ordered CBC W/O DIFF,HEMOGRAM [HEME] Q3D Lab 03/29/19 07:00 Ordered CBC W/O DIFF,HEMOGRAM [HEME] Q3D Lab 04/01/19 07:00 Ordered CBC W/O DIFF,HEMOGRAM [HEME] Q3D Lab 04/04/19 07:00 Ordered CBC W/O DIFF,HEMOGRAM [HEME] Q3D Lab 04/07/19 07:00 Ordered CBC W/O DIFF,HEMOGRAM [HEME] Q3D Lab 04/10/19 07:00 Ordered CBC W/O DIFF,HEMOGRAM [HEME] Q3D Lab 04/13/19 07:00 Ordered CBC WITH AUTO DIFF [HEME] AM Lab 03/26/19 05:15 Ordered INR,PT,PROTHROMBIN TIME [COAG] Routine Lab 03/26/19 07:00 Ordered Amlodipine.10mg Med 03/26/19 08:00 Active 0.5 each PO DAILY Ascorbic Acid [Vitamin C] Med 03/25/19 10:15 Active 250 mg PO DAILY Budesonide/Formoterol Fumarate [Symbicort 80-4.5 Mcg Med 03/25/19 20:00 Active Inhaler] 2 puff INH BID Dicyclomine [Bentyl] Med 03/25/19 10:08 Active 10 mg PO QID PRN Enoxaparin [Lovenox] Med 03/25/19 10:15 Active 100 mg SUBCUT BID Ferrous Sulfate Med 03/25/19 10:15 Active 325 mg PO DAILY Fish Oil/Cal Nev Ari-3 Fatty Acids [Fish Oil] Med 03/26/19 08:00 Active 1 gm PO DAILY Furosemide [Lasix] Med 03/25/19 11:20 Active 20 mg PO DAILY Lisinopril 40mg Tab Med 03/25/19 11:30 Active 0.5 each PO DAILY Metoprolol Succinate [Toprol XL] Med 03/25/19 20:00 Active 25 mg PO BEDTIME Metoprolol Succinate [Toprol XL] Med 03/26/19 08:00 Active 50 mg PO DAILY Multivitamins w-Iron/Ca/FA/Min [Thera M Plus] Med 03/26/19 08:00 Active 1 tab PO DAILY Omeprazole Med 03/25/19 17:00 Active 20 mg PO ACDINNER Oxybutynin Med 03/25/19 10:15 Active 5 mg PO DAILY Potassium Chloride [Klor-Con M20] Med 03/25/19 18:00 Active 20 meq PO BIDMEALS Pravastatin Med 03/25/19 20:00 Active 40 mg PO MoTh@1999 Sennosides [Senna] Med 03/25/19 10:08 Active 8.6 mg PO DAILY PRN Sucralfate [Carafate] Med 03/25/19 10:15 Active 1 gm PO DAILY Warfarin. 5mg Med 03/29/19 20:00 Active 0.5 each PO MO@1999 Warfarin. 5mg Med 03/25/19 20:00 Active 1 each PO SUTUWETHFRSA@1999 Code Status [Resuscitation Status] Routine Resus Stat 03/25/19 10:15 Ordered Medication Orders Ascorbic Acid (Vitamin C) 250 mg PO DAILY [facility] Last Admin: 03/25/19 11:19 Dose: 250 mg Dicyclomine HCl (Bentyl) 10 mg PO QID PRN PRN Reason: Cramping Enoxaparin Sodium (Lovenox) 100 mg SUBCUT BID [facility] Last Admin: 03/25/19 11:18 Dose: 100 mg Ferrous Sulfate (Ferrous Sulfate) 325 mg PO DAILY [facility] Last Admin: 03/25/19 11:18 Dose: 325 mg Fish Oil (Fish Oil) 1 gm PO DAILY [facility] Furosemide (Lasix) 20 mg PO DAILY [facility] Metoprolol Succinate (Toprol Xl) 25 mg PO BEDTIME [facility] Metoprolol Succinate (Toprol Xl) 50 mg PO DAILY [facility] Multivitamins/Minerals (Thera M Plus) 1 tab PO DAILY [facility] Own Supply: Budesonide/Formoterol Fumarate [Symbicort 80-4.5 Inhaler] 2 puff INH BID [facility] Own Supply: (Pravastatin 40mg) 40 mg PO MoTh@1999 [facility] Own Supply: (Lisinopril 40mg Tab) 0.5 each PO DAILY [facility] Last Admin: 03/25/19 12:06 Dose: 0.5 each Own Supply: Warfarin (. 5mg) 1 each PO SUTUWETHFRSA@1999 [facility] Own Supply: Warfarin (. 5mg Tab) 0.5 each PO MO@1999 [facility] Amlodipine.10mg (Tablet) 0.5 each PO DAILY [facility] Omeprazole (Omeprazole) 20 mg PO ACDINNER [facility] Oxybutynin Chloride (Oxybutynin) 5 mg PO DAILY [facility] Last Admin: 03/25/19 11:19 Dose: Not Given Potassium Chloride (Klor-Con M20) 20 meq PO BIDMEALS [facility] Senna (Senna) 8.6 mg PO DAILY PRN PRN Reason: Constipation Sucralfate (Carafate) 1 gm PO DAILY [facility] Last Admin: 03/25/19 12:06 Dose: 1 gm Assessment/Plan Comment:: Assessment 1. Atrial Fibrillation with RVR, symptoms have resolved. We have adjusted his medications and will continue to monitor with telemetry. 2. Chest pain, with known history of CAD. 3. Hypertension, improved. 4. Confusion, resolved. Plan: 1. Serial troponin and telemetry. 2. Coreg to Toprol per cardio. 3. observation overnight, repeat labs in the morning. 4. Lovenox and Coumadin
[2019-03-25] MEDS ORDERED: Omeprazole 20 MG Cap.CR PO SCH (17:00)
[2019-03-25] MEDS: Potassium Chloride 20 MEQ Tab.ER PO SCH (17:34)
[2019-03-25] MEDS: FORMOTEROL FUMARATE INH SCH (19:51)
[2019-03-25] MEDS: BUDESONIDE INH SCH (19:51)
[2019-03-25] MEDS ORDERED: PRAVASTATIN 40 MG PO SCH (20:00)
[2019-03-25] MEDS ORDERED: [UNRECOGNIZED DRUG - OTHER] PO SCH (20:00)
[2019-03-25] MEDS ORDERED: Metoprolol Succinate 25 MG Tab.ER PO SCH (20:00)
[2019-03-26 06:52] LABS: CHLORIDE,CL 104 mmol/L (98-107); SODIUM,NA 143 mmol/L (136-145)
[2019-03-26 06:53] LABS: ANION GAP 11.6 mmol/L (10-20)
[2019-03-26] MEDS: SUCRALFATE 1 GM PO SCH (07:52)
[2019-03-26] MEDS: LISINOPRIL 40 MG PO SCH (07:52)
[2019-03-26] MEDS: Ferrous Sulfate 325 MG Tab PO SCH (07:53)
[2019-03-26] MEDS: BUDESONIDE INH SCH (07:53)
[2019-03-26] MEDS: FORMOTEROL FUMARATE INH SCH (07:53)
[2019-03-26] MEDS: Ascorbic Acid 500 MG Tab PO SCH (07:54)
[2019-03-26 07:55] VITALS: BP 161/82
[2019-03-26] MEDS: Enoxaparin 100 MG/1 ML Syringe SUBCUT SCH (07:55)
[2019-03-26] MEDS: Potassium Chloride 20 MEQ Tab.ER PO SCH (07:55)
[2019-03-26] MEDS: Oxybutynin 5 MG Tab PO SCH (07:56)
[2019-03-26] MEDS ORDERED: Metoprolol Succinate 50 MG Tab.ER PO SCH ×2 (08:00)
[2019-03-26] MEDS ORDERED: Lisinopril 20 MG Tab PO SCH (08:00)
[2019-03-26] MEDS ORDERED: AMLODIPINE PO SCH (08:00)
[2019-03-26] MEDS ORDERED: Fish Oil/Omega-3 Fatty Acids 1 Gm Cap PO SCH (08:00)
[2019-03-26] MEDS ORDERED: Multivitamins with Iron/Calcium/Folic Acid/Minerals Tab PO SCH (08:00)
--- NOTE | 2019-03-27 03:57 | DISCH ---
PRIMARY DISCHARGE DIAGNOSES: 1. Atrial fibrillation with rapid ventricular rates, resolved by the time he arrived at the ER. 2. Chest pain with known history of coronary artery disease, ruled out with serial troponins. 3. Known history of severe bradycardia with up to 7-second pauses. The patient has been seen by Cardiology and did not feel he was in need of a pacemaker. He has not been feeling lightheaded or dizzy. 4. Chronic abdominal pain in the crusher assembler hours, usually resolved after eating. This occurred again today. He was actually supposed to have a procedure for sphincter of Oddi dysfunction in the coming weeks, but he wants to postpone that due to heart problems. 5. Essential hypertension with significantly elevated blood pressure on admission, but improved; however, back up to again to 161/81 on discharge, which is not that unusual for him as he does have labile blood pressures. 6. 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 This has been a recurrent problem for him. 7. Aortic stenosis, mild, asymptomatic. 8. Chronic bronchitis and asthma, stable, asymptomatic. 9. Chronic lymphocytic leukemia with elevated white count, not currently on any treatment. 10.Chronic kidney disease, stage 2, stable. 11.Hypokalemia, replaced orally. 12.Subtherapeutic INR. He did get a dose of therapeutic Lovenox. He is back in range today. This is just probably due to being off Coumadin for previous procedures. 13.Chronic diastolic heart failure, stable without exacerbation. REASON FOR ADMISSION: On the date of admission, this 88-year-old male, presented to the ER with a racing heart rate and chest pain that woke him up around 4 a.m. He states that the pain did not occur until after the heart racing stopped. A month ago, he had an episode of sharp chest pain as well, but had not otherwise been having any angina. He was also confused when it occurred, but was better by the time he got to the ER. Initial troponin and subsequent troponin were negative. EKG was showing AFib. He had no events on telemetry. He did go down to 41 overnight with a 2-second pause. Cardiology was contacted and recommended changing his Coreg to Toprol 50 mg in the morning and 25 at bedtime, so this was initiated here. PHYSICAL EXAMINATION: Vital Signs: Otherwise, his discharge vitals showed a weight of 100.7 kg, temperature 97.7, pulse 64, blood pressure 181/82, respiratory rate 18, O2 of 100 on room air. General: He is in no acute distress. Heart: His heart is regularly irregular with murmur. Lungs sounds were clear to auscultation bilaterally without crackles or wheezes. Abdomen: Nondistended, nontender. He does have an ostomy noted with slight hernia, but no tenderness, it was reducible. Extremities: Warm and dry. There was no edema. Mental Status: He is alert. He is orientated x3. DISCHARGE PLANS AND INSTRUCTIONS: The patient will follow up with myself in the clinic in March. He will have a Holter monitor to monitor for further arrhythmias. He will continue his same Coumadin and have an INR in 7-8. His GI procedure is now placed on hold. He will stop Coreg and be on Toprol 50 in the morning and 25 at night. MKA: 03/26/2019 13:01:34 MODL: 03/27/2019 03:52:11 /[id number]
[2019-03-29] MEDS ORDERED: WARFARIN 5 MG PO SCH (20:00)
== END 2019-03-26 10:10 | disposition home or self-care (01) ==
LOC: VM.ED 07:16 → VM.MS 09:40
PROVIDERS: ADMIT Internal Medicine; ATTEND Internal Medicine
DX: I48.2 Chronic atrial fibrillation (principal); R07.9 Chest pain, unspecified; G89.29 Other chronic pain; R10.9 Unspecified abdominal pain; R79.1 Abnormal coagulation profile; E87.6 Hypokalemia; I25.118 Atherosclerotic heart disease of native coronary artery with other forms of angina pectoris; I35.0 Nonrheumatic aortic (valve) stenosis; I13.0 Hypertensive heart and chronic kidney disease with heart failure and stage 1 through stage 4 chronic kidney disease, or unspecified chronic kidney disease; I50.32 Chronic diastolic (congestive) heart failure; N18.2 Chronic kidney disease, stage 2 (mild); C91.10 Chronic lymphocytic leukemia of B-cell type not having achieved remission; J44.9 Chronic obstructive pulmonary disease, unspecified; K94.09 Other complications of colostomy; K45.8 Other specified abdominal hernia without obstruction or gangrene; R73.03 Prediabetes; Z88.1 Allergy status to other antibiotic agents; Z88.8 Allergy status to other drugs, medicaments and biological substances; Z95.1 Presence of aortocoronary bypass graft; Z85.038 Personal history of other malignant neoplasm of large intestine; Z79.01 Long term (current) use of anticoagulants; Z79.51 Long term (current) use of inhaled steroids; Z79.899 Other long term (current) drug therapy
CPT/HCPCS: 36415; 71045; 80048; 80053; 81001; 83605; 83735; 84100; 84443; 84484; 85025; 85610; 93005; 99285; A9270; J1650; 93010; 96372; 99284-GF; G0378

== ENCOUNTER 2019-10-24 08:09 | Emergency (ER) | payer MEDICARE, BC ==
[2019-10-24 08:38] VITALS: BP 171/101; PULSE 106
--- NOTE | 2019-10-24 08:51 | EDM.PDOC ---
ED HPI GENERAL MEDICAL PROBLEM - General Chief Complaint: Respiratory Problem Stated Complaint: ER Time Seen by Provider: 10/24/19 08:25 Source of Information: Reports: Patient History Limitations: Reports: No Limitations - History of Present Illness INITIAL COMMENTS - FREE TEXT/NARRATIVE: Patient presents to ER with complaints of persistent cough. He started noting increased sinus congestion and postnasal drainage last Friday. Cough started Friday. Has not been able to get much rest due to persistent cough. Nonproductive now. States on Friday, did cough up yellowish-orange phlegm. Does have an inhaler at home that he used, didn't note much difference. He denies much change in his breathing or increased shortness of breath. Has felt warm at times, unsure if fever. No increased edema. Has history of atrial fib. Onset: Gradual Duration: Day(s): Location: Reports: Chest Associated Symptoms: Reports: Cough, Fever/Chills. Denies: cough w sputum, Loss of Appetite, Nausea/Vomiting, Shortness of Breath, Weakness - Related Data Allergies Allergy/AdvReac Type Severity Reaction Status Date / Time levofloxacin [From Levaquin] Allergy Unknown Other Verified 10/24/19 08:57 fluvastatin sodium AdvReac Unknown Other Verified 10/24/19 08:57 [From Lescol] niacin AdvReac Unknown Other Verified 10/24/19 08:57 [From Niaspan Extended-Release] simvastatin [From Zocor] AdvReac Unknown Other Verified 10/24/19 08:57 Home Meds: Home Meds Multivitamin [Multi-Vitamin Daily] 1 each PO DAILY 10/23/13 [History] [place]-3 Fatty Acids [Fish Oil] 1,000 mg PO DAILY 10/23/13 [History] Potassium Chloride [Klor-Con M20] 20 meq PO DAILY 10/23/13 [History] Pravastatin [Pravachol] 40 mg PO MOTH@199910/23/13 [History] amLODIPine [Norvasc] 5 mg PO DAILY 10/23/13 [History] Sennosides [Senna] 8.6 mg PO DAILY PRN 03/28/14 [History] Warfarin [Coumadin] 5 mg PO SUTUWETHFRSA@199903/28/14 [History] Omeprazole [Prilosec] 1 tab PO ACDINNER 05/08/14 [History] Albuterol [Ventolin HFA] 1 - 2 puff INH Q4H PRN 11/13/14 [History] Furosemide 20 mg PO DAILY 11/13/14 [History] Sucralfate [Carafate] 1 gram PO DAILY 11/13/14 [History] Budesonide/Formoterol Fumarate [Symbicort 80-4.5 MCG] 2 puff INH BID 04/27/16 [ History] Dextran 70/Hypromellose [Artificial Tears] 1 drop EYEBOTH Q4H PRN 05/21/16 [ History] Phytonadione [Vitamin K] 100 mcg PO DAILY 05/21/16 [History] lisinopriL [Prinivil] 20 mg PO DAILY 05/21/16 [History] Diclofenac Sodium [Voltaren 1% Gel] 1 dose TOP ASDIRECTED PRN 08/31/18 [History] Dicyclomine [Bentyl] 10 mg PO QID PRN 08/31/18 [History] Lidocaine 5% [Lidoderm 5%] 1 patch TOP DAILY PRN 08/31/18 [History] Ascorbic Acid [Vitamin C] 250 mg PO DAILY 03/25/19 [History] Ferrous Sulfate [Iron] 325 mg PO DAILY 03/25/19 [History] Lactulose [Chronulac] 15 ml PO DAILY PRN 03/25/19 [History] Warfarin [Coumadin] 2.5 mg PO MO@199903/25/19 [History] Metoprolol Succinate [Toprol XL 50mg] 50 mg PO DAILY #7 tab.er 03/26/19 [Rx] Metoprolol Succinate [Toprol XL] 25 mg PO BEDTIME #7 tab.er 03/26/19 [Rx] Past Medical History HEENT History: Reports: Cataract, Other (See Below) Other HEENT History: PINGUECULA (BENIGN THIN GROWTH OF TISSUE OVER SCLERA). 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 MYOPIA. ASTIGMATISM Cardiovascular History: Reports: Afib, CAD, Heart Failure, High Cholesterol, Hypertension, Pulmonary Hypertension Other Cardiovascular History: STENOSIS OF LEFT CAROTID ARTERY. ENDOCARDITIS. VENOUS INSUFFICIANCY. AORTIC STENOSIS Respiratory History: Reports: Asthma, COPD, Sleep Apnea, SOB Other Respiratory History: PULMONARY HYPERINFLATION Other Gastrointestinal History: SMALL BOWEL OBSTRUCTION. HERNIA. DIARRHEA Genitourinary History: Other Genitourinary History: BPH (BENIGN PROSTATIC HYPERPLASIA). CHRONIC KIDNEY DISEASE, STAGE 2 (MILD). MALIGNANT NEOPLASM PROSTATE Musculoskeletal History: Reports: Back Pain, Chronic Other Musculoskeletal History: FACET HYPERTROPHY OF LUMBAR REGION. LUMBAR DEGENERATIVE DISC DISEASE Neurological History: Reports: CVA Other Neuro History: HERNIA CEREBRI Psychiatric History: Reports: Other (See Below) Other Psychiatric History: PAIN MEDICATION AGREEMENT Endocrine/Metabolic History: Reports: Obesity/BMI 30+, Other (See Below) Other Endocrine/Metabolic History: PREDIABETES Hematologic History: Reports: Anemia Other Hematologic History: VITAMIN D DEFICIENCY. LEUKOCYTOSIS Oncologic (Cancer) History: Reports: Prostate Other Oncologic History: HX OF CHEMOTHERAPY. HX OF RADIATION THERAPY. BASAL CELL CARCINOMA OF SKIN. RECTAL CANCER - Past Surgical History Head Surgeries/Procedures: Reports: None Cardiovascular Surgical History: Reports: Coronary Artery Bypass GI Surgical History: Reports: Cholecystectomy, Colonoscopy, Colostomy, EGD, Hernia Repair/Other Social & Family History - Family History Family Medical History: Noncontributory (Both parents .) - Caffeine Use Caffeine Use: Reports: Coffee ED ROS GENERAL - Review of Systems Review Of Systems: See Below Constitutional: Reports: Chills, Malaise. Denies: Fever, Weakness, Fatigue, Decreased Appetite HEENT: Reports: Rhinitis, Other (postnasal drainage). Denies: Ear Pain, Sinus Problem, Throat Pain, Vertigo Respiratory: Reports: Cough. Denies: Wheezing Cardiovascular: Denies: Chest Pain, Edema, Lightheadedness Endocrine: Denies: Fatigue GI/Abdominal: Denies: Abdominal Pain, Nausea, Vomiting : Reports: No Symptoms Musculoskeletal: Reports: No Symptoms Skin: Reports: No Symptoms Neurological: Reports: No Symptoms ED EXAM, GENERAL - Physical Exam Exam: See Below Exam Limited By: No Limitations General Appearance: Alert, WD/WN, No Apparent Distress Ears: Normal External Exam, Normal TMs Nose: Normal Inspection, Normal Mucosa, No Blood Throat/Mouth: Normal Inspection, Other (posterior pharynx is pink with obvious thick postnasal drainage) Head: Normocephalic Neck: Normal Inspection, Supple, Non-Tender Respiratory/Chest: No Respiratory Distress, Lungs Clear, Normal Breath Sounds Cardiovascular: Irregularly Irregular GI/Abdominal: Normal Bowel Sounds, Soft, Non-Tender, Other (colostomy intact) Extremities: Normal Inspection, No Pedal Edema Neurological: Alert, Oriented Skin Exam: Warm, Dry Course - Vital Signs Last Recorded V/S: Last Vital Signs Temp 96.7 F 10/24/19 08:10 Pulse 106 H 10/24/19 08:10 Resp 16 10/24/19 08:10 BP 171/101 H 10/24/19 08:10 Pulse Ox 98 10/24/19 08:10 - Orders/Labs/Meds Labs: Laboratory Tests 10/24/19 10/24/19 Range/Units 08:45 08:45 WBC 10.7 H (4.0-10.0) x10^3/uL RBC 5.28 (4.5-6.0) x10^6/uL Hgb 14.6 (14.0-18.0) g/dL Hct 43.7 (40.0-52.0) % MCV 82.8 (78.0-93.0) fL MCH 27.7 (26.0-32.0) pg MCHC 33.4 (32.0-36.0) g/dL RDW Coeff of Roberta 15.9 H (10.0-15.0) % Plt Count 211 (130-400) x10^3/uL Neut % (Auto) 45.8 L (50.0-80.0) % Lymph % (Auto) 41.4 (25.0-50.0) % [place] % (Auto) 11.1 H (2.0-11.0) % Eos % (Auto) 1.2 (0.0-4.0) % Baso % (Auto) 0.5 (0.2-1.2) % Sodium 140 (136-145) mmol/L Potassium 3.3 L (3.5-5.1) mmol/L Chloride 102 (98-107) mmol/L Carbon Dioxide 30 (21-32) mmol/L Anion Gap 11.3 (10-20) mmol/L BUN 9 (7-18) mg/dL Creatinine 0.9 (0.70-1.30) mg/dL Est Cr Clr Drug Dosing 61.59 mL/min Estimated GFR (MDRD) > 60 Glucose 132 H (74-106) mg/dL Calcium 8.3 L (8.5-10.1) mg/dL C-Reactive Protein 0.7 (<=0.9) mg/dL - Re-Assessments/Exams Free Text/Narrative Re-Assessment/Exam: 10/24/19 09:46 Labs noted. WBC 10.7. CRP negative. Chest xray does show a opacity in the right hilar region. Will treat for potential pneumonia and have Dr. Nassar follow this area on Chest xray and determine if CT needed at some point. Dr. Nassar here today at this time, did discuss xray report with her. 10/24/19 09:49 Discussed lab and chest xray with patient. Has been taking Mucinex D. Advised to switch to plain mucinex due to blood pressure. Will send home cough medicine but cautioned on sedation and to be slow and purposeful with movements if getting up at night while taking to prevent falls. Departure - Departure Time of Disposition: 09:51 Disposition: Home, Self-Care 01 Condition: Good Clinical Impression: URI, acute - Discharge Information *PRESCRIPTION DRUG MONITORING PROGRAM REVIEWED*: No *COPY OF PRESCRIPTION DRUG MONITORING REPORT IN PATIENT CEE: No Referrals: Yolanda Nassar, [Primary Care Provider] - (keep scheduled appointment with Dr. Nassar on Friday) Forms: ED Department Discharge Additional Instructions: 1. Rest 2. Push fluids 3. Ceftin 250 mg twice per day for 10 days, start tomorrow 4. Promethazine with codeine- 1-2 tsps every 6 hours as needed for cough 5. Keep scheduled appointment with Dr. Nassar on Friday for follow up. Sepsis Event Note - Evaluation Sepsis Screening Result: No Definite Risk - Focused Exam Vital Signs: Vital Signs Temp Pulse Resp BP Pulse Ox 10/24/19 08:10 96.7 F 106 H 16 171/101 H 98 Date Exam was Performed: 10/24/19 Time Exam was Performed: 09:46
[2019-10-24 09:04] LABS: CHLORIDE,CL 102 mmol/L (98-107); SODIUM,NA 140 mmol/L (136-145)
[2019-10-24 09:06] LABS: ANION GAP 11.3 mmol/L (10-20)
--- NOTE | 2019-10-24 09:11 | CR ---
[id number] RAD/RAD Chest PA And Lateral EXAM: RAD Chest PA And Lateral INDICATION: COUGH. COMPARISON: March 25, 2019. DISCUSSION: Cardiomegaly and central vascular congestion, similar to the prior examination. Possible right hilar lymphadenopathy as there is a 37 x 28 mm abnormally rounded area of opacification. This possibly represents a dilated central pulmonary vasculature is well. Bibasal scarring superimposed on changes of chronic obstructive pulmonary disease. No acute cardiopulmonary findings. IMPRESSION: No acute cardiopulmonary findings. Cardiomegaly with central vascular congestion superimposed on changes of chronic obstructive pulmonary disease. Rounded opacity in the right hilar region is nonspecific and possibly dilated central pulmonary vasculature. However this could also represent lymphadenopathy. Contrast-enhanced chest CT examination is recommended for further evaluation. Saw Myers MD 10/24/19 0910 Thank you for allowing us to participate in the care of your patient.
[2019-10-24] MEDS ORDERED: Take Home: Codeine/Promethazine 10-6.25 MG/5 ML Syrup 5 ML, 2 Cup Pack PO ONE (09:47)
[2019-10-24] MEDS ORDERED: methylPREDNISolone Acetate 40 MG/ML SDV IM ONE (09:48)
[2019-10-24] MEDS ORDERED: cefTRIAXone 1 GM Vial IM ONE (09:48)
[2019-10-24] MEDS ORDERED: Lidocaine 1% 2 ML ONE (09:58)
== END 2019-10-24 10:35 | disposition home or self-care (01) ==
LOC: VM.ED 08:09
DX: J06.9 Acute upper respiratory infection, unspecified (principal); I11.0 Hypertensive heart disease with heart failure; I50.9 Heart failure, unspecified; I25.10 Atherosclerotic heart disease of native coronary artery without angina pectoris; I48.91 Unspecified atrial fibrillation; E78.00 Pure hypercholesterolemia, unspecified; J44.9 Chronic obstructive pulmonary disease, unspecified; E66.9 Obesity, unspecified; Z68.31 Body mass index [BMI] 31.0-31.9, adult; Z88.8 Allergy status to other drugs, medicaments and biological substances; Z79.899 Other long term (current) drug therapy
CPT/HCPCS: 36415; 71046; 80048; 85025; 86140; 96372; 99283; 99284; A9270; J0696; J1030; J2001

== ENCOUNTER 2019-11-02 20:16 | Emergency (ER) | payer MEDICARE, BC ==
--- NOTE | 2019-11-02 20:33 | EDM.PDOC ---
ED HPI GENERAL MEDICAL PROBLEM - General Chief Complaint: Abdominal Pain Stated Complaint: abdominal pain Time Seen by Provider: 11/02/19 20:20 Source of Information: Reports: Patient History Limitations: Reports: No Limitations - History of Present Illness INITIAL COMMENTS - FREE TEXT/NARRATIVE: 88-year-old white male that presents the ER tonight with a sudden onset of right lower quadrant pain while at home he rated it as 8 out of 10 sharp pressure but did not go anywhere but was around his colostomy area that lasted about 30 minutes he called EMS and was transported to the ER where he states his pain is now a 3 out of 10 which is his normal everyday pain that has been for the last multiple years he has been worked up by GI from 1 end to the other with nothing found for the same type of pain. He was seen at the [facility] today for a follow-up appointment they barbi blood work which was all normal and he had a normal exam he has had a EGD 6 months ago was normal he had a endoscopic capsule swallow study 8 months ago which was normal he had a colostomy scope 6 months ago where they removed 2 benign polyps the rest was normal. Patient states he had a normal diet today ate breakfast lunch and for supper he had a sloppy Gopal and coleslaw about 530 and the pain started approximately about 7. He has no other complaints no nausea or vomiting no chest pain no fever or chills states he feels fine now. Duration: Hour(s): Location: Reports: Abdomen Quality: Reports: Pressure, Sharp, Stabbing Severity: Moderate Improves with: Reports: Other (Time) - Related Data Allergies Allergy/AdvReac Type Severity Reaction Status Date / Time levofloxacin [From Levaquin] Allergy Unknown Other Verified 10/24/19 08:57 fluvastatin sodium AdvReac Unknown Other Verified 10/24/19 08:57 [From Lescol] niacin AdvReac Unknown Other Verified 10/24/19 08:57 [From Niaspan Extended-Release] simvastatin [From Zocor] AdvReac Unknown Other Verified 10/24/19 08:57 Home Meds: Home Meds Multivitamin [Multi-Vitamin Daily] 1 each PO DAILY 10/23/13 [History] [place]-3 Fatty Acids [Fish Oil] 1,000 mg PO DAILY 10/23/13 [History] Potassium Chloride [Klor-Con M20] 20 meq PO DAILY 10/23/13 [History] Pravastatin [Pravachol] 40 mg PO MOTH@199910/23/13 [History] amLODIPine [Norvasc] 5 mg PO DAILY 10/23/13 [History] Sennosides [Senna] 8.6 mg PO DAILY PRN 03/28/14 [History] Warfarin [Coumadin] 5 mg PO SUTUWETHFRSA@199903/28/14 [History] Omeprazole [Prilosec] 1 tab PO ACDINNER 05/08/14 [History] Albuterol [Ventolin HFA] 1 - 2 puff INH Q4H PRN 11/13/14 [History] Furosemide 20 mg PO DAILY 11/13/14 [History] Sucralfate [Carafate] 1 gram PO DAILY 11/13/14 [History] Budesonide/Formoterol Fumarate [Symbicort 80-4.5 MCG] 2 puff INH BID 04/27/16 [ History] Dextran 70/Hypromellose [Artificial Tears] 1 drop EYEBOTH Q4H PRN 05/21/16 [ History] Phytonadione [Vitamin K] 100 mcg PO DAILY 05/21/16 [History] lisinopriL [Prinivil] 20 mg PO DAILY 05/21/16 [History] Diclofenac Sodium [Voltaren 1% Gel] 1 dose TOP ASDIRECTED PRN 08/31/18 [History] Dicyclomine [Bentyl] 10 mg PO QID PRN 08/31/18 [History] Lidocaine 5% [Lidoderm 5%] 1 patch TOP DAILY PRN 08/31/18 [History] Ascorbic Acid [Vitamin C] 250 mg PO DAILY 03/25/19 [History] Ferrous Sulfate [Iron] 325 mg PO DAILY 03/25/19 [History] Lactulose [Chronulac] 15 ml PO DAILY PRN 03/25/19 [History] Warfarin [Coumadin] 2.5 mg PO MO@199903/25/19 [History] Metoprolol Succinate [Toprol XL 50mg] 50 mg PO DAILY #7 tab.er 03/26/19 [Rx] Metoprolol Succinate [Toprol XL] 25 mg PO BEDTIME #7 tab.er 03/26/19 [Rx] Past Medical History HEENT History: Reports: Cataract, Other (See Below) Other HEENT History: PINGUECULA (BENIGN THIN GROWTH OF TISSUE OVER SCLERA). 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 MYOPIA. ASTIGMATISM Cardiovascular History: Reports: Afib, CAD, Heart Failure, High Cholesterol, Hypertension, Pulmonary Hypertension Other Cardiovascular History: STENOSIS OF LEFT CAROTID ARTERY. ENDOCARDITIS. VENOUS INSUFFICIANCY. AORTIC STENOSIS Respiratory History: Reports: Asthma, COPD, Sleep Apnea, SOB Other Respiratory History: PULMONARY HYPERINFLATION Other Gastrointestinal History: SMALL BOWEL OBSTRUCTION. HERNIA. DIARRHEA Genitourinary History: Other Genitourinary History: BPH (BENIGN PROSTATIC HYPERPLASIA). CHRONIC KIDNEY DISEASE, STAGE 2 (MILD). MALIGNANT NEOPLASM PROSTATE Musculoskeletal History: Reports: Back Pain, Chronic Other Musculoskeletal History: FACET HYPERTROPHY OF LUMBAR REGION. LUMBAR DEGENERATIVE DISC DISEASE Neurological History: Reports: CVA Other Neuro History: HERNIA CEREBRI Psychiatric History: Reports: Other (See Below) Other Psychiatric History: PAIN MEDICATION AGREEMENT Endocrine/Metabolic History: Reports: Obesity/BMI 30+, Other (See Below) Other Endocrine/Metabolic History: PREDIABETES Hematologic History: Reports: Anemia Other Hematologic History: VITAMIN D DEFICIENCY. LEUKOCYTOSIS Oncologic (Cancer) History: Reports: Prostate Other Oncologic History: HX OF CHEMOTHERAPY. HX OF RADIATION THERAPY. 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 Denies: Fever, Chills, Malaise, Weakness, Fatigue, Diaphoresis, Decreased Appetite HEENT: Reports: No Symptoms Respiratory: Reports: No Symptoms Cardiovascular: Reports: No Symptoms, Lightheadedness. Denies: Chest Pain, Blood Pressure Problem, Claudication, Dyspnea on Exertion, Edema, Orthopnea, Palpitations, PND, Syncope Endocrine: Reports: No Symptoms GI/Abdominal: Reports: Abdominal Pain. Denies: Anorexia, Black Stool, Bloody Stool, Constipation, Diarrhea, Decreased Appetite, Difficulty Swallowing, Distension, Flatus, Hematemesis, Hematochezia, Melena, Mucous in Stool, Nausea, Stool Incontinence, Vomiting : Reports: No Symptoms Musculoskeletal: Reports: No Symptoms Skin: Reports: No Symptoms Neurological: Reports: No Symptoms Psychiatric: Reports: No Symptoms Hematologic/Lymphatic: Reports: No Symptoms Immunologic: Reports: No Symptoms ED EXAM, GI/ABD - Physical Exam Exam: See Below Exam Limited By: No Limitations General Appearance: Alert, WD/WN, No Apparent Distress, Other (Patient is talking wide open no acute distress laughing follows all commands answers all questions very friendly again states he has about a 3 out of 10 pain which he deals with every day this is no different from his normal pain now) Eyes: Bilateral: Normal Appearance, EOMI Nose: Normal Inspection, Normal Mucosa Throat/Mouth: Normal Inspection, Normal Lips, Normal Teeth, Normal Gums, Normal Oropharynx, Normal Voice, No Airway Compromise, Other (Moist mucous membrane) Head: Atraumatic, Normocephalic Neck: Normal Inspection, Supple, Non-Tender, Full Range of Motion Respiratory/Chest: No Respiratory Distress, Lungs Clear, Normal Breath Sounds, No Accessory Muscle Use, Chest Non-Tender Cardiovascular: Normal Peripheral Pulses, No Edema, No Gallop, No JVD, No Murmur , No Rub, Irregularly Irregular. No: Regular Rate, Rhythm (All vital signs noted to be stable via EMS) GI/Abdominal Exam: Normal Bowel Sounds, Soft, Non-Tender, No Organomegaly, No Distention, No Abnormal Bruit, Other (Colostomy site looks well with no signs of secondary infection the bag is noted to be full of gas patient states when he lets it off and actually feels better he has no tenderness to palpation over the abdomen no pelvic rock negative heel slap). No: Guarding, Rigid, Rebound, Tender, Abnormal Bowel Sounds Back Exam: Normal Inspection, Full Range of Motion Extremities: Normal Inspection, Normal Range of Motion, Non-Tender, No Pedal Edema Neurological: Alert, Oriented, CN II-XII Intact, Normal Cognition, No Motor/ Sensory Deficits Psychiatric: Normal Affect, Normal Mood Skin Exam: Warm, Dry, Intact, Normal Color, No Rash Course - Vital Signs Text/Narrative:: We will check basic labs CBC BMP INR secondary to patient is on Coumadin due to chronic A. fib patient has he again about his pain scale states it a 3 out of 10 in his normal pain Patient rechecked multiple times states now he has no pain whatsoever CBC of 13.6 INR 1.6 rest of labs are all within normal limits Patient states he feels fine and wants to go home he was educated on signs symptoms needs return to the emergency room gives verbal understanding - Orders/Labs/Meds Labs: Laboratory Tests 11/02/19 11/02/19 11/02/19 Range/Units 20:39 20:39 20:39 WBC 13.6 H (4.0-10.0) x10^3/uL RBC 4.69 (4.5-6.0) x10^6/uL Hgb 13.9 L (14.0-18.0) g/dL Hct 40.0 (40.0-52.0) % MCV 85.3 (78.0-93.0) fL MCH 29.6 (26.0-32.0) pg MCHC 34.8 (32.0-36.0) g/dL RDW Coeff of Roberta 16.1 H (10.0-15.0) % Plt Count 248 (130-400) x10^3/uL Neut % (Auto) 44.8 L (50.0-80.0) % Lymph % (Auto) 45.9 (25.0-50.0) % [place] % (Auto) 7.8 (2.0-11.0) % Eos % (Auto) 1.3 (0.0-4.0) % Baso % (Auto) 0.2 (0.2-1.2) % PT 18.0 H (10.0-12.8) SEC INR 1.6 L (2.0-3.5) Sodium 141 (136-145) mmol/L Potassium 3.3 L (3.5-5.1) mmol/L Chloride 101 (98-107) mmol/L Carbon Dioxide 32 (21-32) mmol/L Anion Gap 11.3 (10-20) mmol/L BUN 20 H (7-18) mg/dL Creatinine 1.2 (0.70-1.30) mg/dL Est Cr Clr Drug Dosing TNP Estimated GFR (MDRD) 57 Glucose 168 H (74-106) mg/dL Calcium 8.5 (8.5-10.1) mg/dL Departure - Departure Time of Disposition: 21:40 Disposition: Home, Self-Care 01 Condition: Good Clinical Impression: Resolved abdominal pain - Discharge Information *PRESCRIPTION DRUG MONITORING PROGRAM REVIEWED*: No *COPY OF PRESCRIPTION DRUG MONITORING REPORT IN PATIENT CEE: No Forms: ED Department Discharge Sepsis Event Note - Focused Exam Date Exam was Performed: 11/02/19 Time Exam was Performed: 21:39 - Problem List & Annotations (1) Resolved abdominal pain SNOMED Code(s): 747505161 Code(s): AYI2727 - Status: Acute Current Visit: Yes
[2019-11-02 21:25] LABS: CHLORIDE,CL 101 mmol/L (98-107); SODIUM,NA 141 mmol/L (136-145)
[2019-11-02 21:31] LABS: ANION GAP 11.3 mmol/L (10-20)
[2019-11-03 01:37] VITALS: BP 134/70; PULSE 81
== END 2019-11-02 21:51 | disposition home or self-care (01) ==
LOC: VM.ED 20:16
DX: R10.31 Right lower quadrant pain (principal); I13.0 Hypertensive heart and chronic kidney disease with heart failure and stage 1 through stage 4 chronic kidney disease, or unspecified chronic kidney disease; I50.9 Heart failure, unspecified; N18.2 Chronic kidney disease, stage 2 (mild); I48.91 Unspecified atrial fibrillation; I25.10 Atherosclerotic heart disease of native coronary artery without angina pectoris; J44.9 Chronic obstructive pulmonary disease, unspecified; Z86.73 Personal history of transient ischemic attack (TIA), and cerebral infarction without residual deficits; Z79.01 Long term (current) use of anticoagulants; Z79.899 Other long term (current) drug therapy; Z79.51 Long term (current) use of inhaled steroids; Z88.8 Allergy status to other drugs, medicaments and biological substances; Z95.1 Presence of aortocoronary bypass graft
CPT/HCPCS: 36415; 80048; 85025; 85610; 99284; 99284-GF

== ENCOUNTER 2020-03-12 10:31 | Emergency (ER) | payer MEDICARE, BC ==
[2020-03-12 10:46] VITALS: BP 156/72; PULSE 96
[2020-03-12] MEDS ORDERED: Albuterol/Ipratropium 3.0-0.5 MG/3 ML Neb Soln NEB ONE (11:06)
--- NOTE | 2020-03-12 11:16 | EDM.PDOC ---
ED HPI GENERAL MEDICAL PROBLEM - General Chief Complaint: Respiratory Problem Stated Complaint: COUGH Time Seen by Provider: 03/12/20 10:45 Source of Information: Reports: Patient History Limitations: Reports: No Limitations - History of Present Illness INITIAL COMMENTS - FREE TEXT/NARRATIVE: Patient presents to ER per private vehicle with complaints of increased shortness of breath. Started feeling "more tough yesterday". Did not sleep well due to the SOB. Does have frequent cough with clear phlegm. ADmits has sinus pressure and drainage, feels "that's what I'm coughing up". Has had audible wheezing. Does check his oxygen level every day, earlier today even with feeling short of breath, was 98%. Has history of COPD, CHF, CAD, Atrial fib. Relates heart rate tends to run around 100 at times. Does feel better now since being here than was prior at the assisted living. He has noticed more edema in his legs as of late. No nausea/vomiting/abdominal pain. No fevers. Onset: Gradual Duration: Day(s):, Getting Worse Location: Reports: Chest Associated Symptoms: Reports: Cough, cough w sputum, Malaise, Shortness of Breath. Denies: Confusion, Chest Pain, Fever/Chills, Loss of Appetite, Nausea/ Vomiting, Syncope, Weakness - Related Data Allergies Allergy/AdvReac Type Severity Reaction Status Date / Time levofloxacin [From Levaquin] Allergy Unknown Other Verified 03/12/20 10:48 fluvastatin sodium AdvReac Unknown Other Verified 03/12/20 10:48 [From Lescol] niacin AdvReac Unknown Other Verified 03/12/20 10:48 [From Niaspan Extended-Release] simvastatin [From Zocor] AdvReac Unknown Other Verified 03/12/20 10:48 Home Meds: Home Meds Multivitamin [Multi-Vitamin Daily] 1 each PO DAILY 10/23/13 [History] [place]-3 Fatty Acids [Fish Oil] 1,000 mg PO DAILY 10/23/13 [History] Potassium Chloride [Klor-Con M20] 20 meq PO TID 10/23/13 [History] Pravastatin [Pravachol] 40 mg PO MOTH@199910/23/13 [History] amLODIPine [Norvasc] 5 mg PO DAILY 10/23/13 [History] Warfarin [Coumadin] 5 mg PO SUTUWETHSA@199903/28/14 [History] Omeprazole [Prilosec] 1 tab PO ACDINNER 05/08/14 [History] Albuterol [Ventolin HFA] 1 - 2 puff INH Q4H PRN 11/13/14 [History] Furosemide 20 mg PO DAILY 11/13/14 [History] Sucralfate [Carafate] 1 gram PO DAILY 11/13/14 [History] Budesonide/Formoterol Fumarate [Symbicort 80-4.5 MCG] 2 puff INH BID 04/27/16 [ History] Dextran 70/Hypromellose [Artificial Tears] 1 drop EYEBOTH Q4H PRN 05/21/16 [ History] Phytonadione [Vitamin K] 100 mcg PO DAILY 05/21/16 [History] lisinopriL [Prinivil] 20 mg PO DAILY 05/21/16 [History] Diclofenac Sodium [Voltaren 1% Gel] 1 dose TOP ASDIRECTED PRN 08/31/18 [History] Lidocaine 5% [Lidoderm 5%] 1 patch TOP DAILY PRN 08/31/18 [History] Ascorbic Acid [Vitamin C] 250 mg PO DAILY 03/25/19 [History] Ferrous Sulfate [Iron] 325 mg PO DAILY 03/25/19 [History] Lactulose [Chronulac] 15 ml PO DAILY PRN 03/25/19 [History] Warfarin [Coumadin] 2.5 mg PO ASDIRECTED 03/25/19 [History] Magnesium Oxide [Mag-Oxide] 400 mg PO DAILY 03/12/20 [History] Metoprolol Succinate [Toprol XL 50mg] 50 mg PO BID 03/12/20 [History] Metoprolol Succinate [Toprol XL] 50 mg PO BID 03/12/20 [History] polyethylene glycoL 3350 [MiraLAX] 17 gm PO DAILY 03/12/20 [History] Past Medical History HEENT History: Reports: Cataract, Other (See Below) Other HEENT History: PINGUECULA (BENIGN THIN GROWTH OF TISSUE OVER SCLERA). 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 MYOPIA. ASTIGMATISM Cardiovascular History: Reports: Afib, CAD, Heart Failure, High Cholesterol, Hypertension, Pulmonary Hypertension Other Cardiovascular History: STENOSIS OF LEFT CAROTID ARTERY. ENDOCARDITIS. VENOUS INSUFFICIANCY. AORTIC STENOSIS Respiratory History: Reports: Asthma, COPD, Sleep Apnea, SOB Other Respiratory History: PULMONARY HYPERINFLATION Other Gastrointestinal History: SMALL BOWEL OBSTRUCTION. HERNIA. DIARRHEA Genitourinary History: Other Genitourinary History: BPH (BENIGN PROSTATIC HYPERPLASIA). CHRONIC KIDNEY DISEASE, STAGE 2 (MILD). MALIGNANT NEOPLASM PROSTATE Musculoskeletal History: Reports: Back Pain, Chronic Other Musculoskeletal History: FACET HYPERTROPHY OF LUMBAR REGION. LUMBAR DEGENERATIVE DISC DISEASE Neurological History: Reports: CVA Other Neuro History: HERNIA CEREBRI Psychiatric History: Reports: Other (See Below) Other Psychiatric History: PAIN MEDICATION AGREEMENT Endocrine/Metabolic History: Reports: Obesity/BMI 30+, Other (See Below) Other Endocrine/Metabolic History: PREDIABETES Hematologic History: Reports: Anemia Other Hematologic History: VITAMIN D DEFICIENCY. LEUKOCYTOSIS Oncologic (Cancer) History: Reports: Prostate Other Oncologic History: HX OF CHEMOTHERAPY. HX OF RADIATION THERAPY. BASAL CELL CARCINOMA OF SKIN. RECTAL CANCER - Past Surgical History Head Surgeries/Procedures: Reports: None Cardiovascular Surgical History: Reports: Coronary Artery Bypass GI Surgical History: Reports: Cholecystectomy, Colonoscopy, Colostomy, EGD, Hernia Repair/Other Social & Family History - Family History Family Medical History: Noncontributory - Tobacco Use Smoking Status *Q: Unknown Ever Smoked - Caffeine Use Caffeine Use: Reports: Coffee ED ROS GENERAL - Review of Systems Review Of Systems: See Below Constitutional: Reports: Malaise, Fatigue. Denies: Fever, Chills, Weakness, Decreased Appetite HEENT: Reports: Rhinitis, Sinus Problem. Denies: Ear Pain, Throat Pain, Vertigo , Vision Change Respiratory: Reports: Shortness of Breath, Cough, Sputum Cardiovascular: Reports: Edema. Denies: Chest Pain, Lightheadedness Endocrine: Denies: Fatigue GI/Abdominal: Denies: Abdominal Pain, Constipation, Diarrhea, Nausea, Vomiting : Reports: No Symptoms Musculoskeletal: Reports: No Symptoms Skin: Reports: No Symptoms Neurological: Reports: No Symptoms ED EXAM, GENERAL - Physical Exam Exam: See Below Exam Limited By: No Limitations General Appearance: Alert, WD/WN, Mild Distress Ears: Normal External Exam, Normal TMs Nose: Normal Inspection, Normal Mucosa, No Blood Throat/Mouth: Normal Inspection, Normal Oropharynx, Other (Admits to maxillary sinus tenderness with palpation) Head: Normocephalic Neck: Normal Inspection, Supple, Non-Tender Respiratory/Chest: Decreased Breath Sounds, Wheezing (inspiratory and expiratory wheezing noted) Cardiovascular: Irregularly Irregular GI/Abdominal: Normal Bowel Sounds, Soft, Non-Tender Extremities: Pedal Edema (1+ LLE, 2+ RLE) Neurological: Alert, Oriented Skin Exam: Warm, Dry Course - Vital Signs Last Recorded V/S: Last Vital Signs Temp 97.7 F 03/12/20 10:35 Pulse 96 03/12/20 10:35 Resp 20 03/12/20 10:35 BP 156/72 H 03/12/20 10:35 Pulse Ox 98 03/12/20 10:35 - Orders/Labs/Meds Orders: Active Orders 24 hr Category Date Time Status RT Aerosol Therapy [RC] ASDIRECTED Care 03/12/20 11:06 Active Albuterol/Ipratropium [Take Home: Albuterol/Ipratropium Med 03/12/20 12:09 Once , 4 Neb Pack] 1 packet NEB ONETIME ONE Azithromycin [Take Home: Azithromycin 250 MG, 2 Tab Med 03/12/20 12:09 Once Pack] 1 packet PO ONETIME ONE cefTRIAXone [Rocephin] Med 03/12/20 12:09 Once 1 gm IM ONETIME ONE methylPREDNISolone acetate [Depo-Medrol] Med 03/12/20 12:09 Once 80 mg IM ONETIME ONE Labs: Laboratory Tests 03/12/20 03/12/20 03/12/20 Range/Units 10:45 11:20 11:20 WBC 11.0 H (4.0-10.0) x10^3/uL RBC 4.92 (4.5-6.0) x10^6/uL Hgb 13.6 L (14.0-18.0) g/dL Hct 40.7 (40.0-52.0) % MCV 82.7 (78.0-93.0) fL MCH 27.6 (26.0-32.0) pg MCHC 33.4 (32.0-36.0) g/dL RDW Coeff of Roberta 14.5 (10.0-15.0) % Plt Count 185 (130-400) x10^3/uL Neut % (Auto) 45.1 L (50.0-80.0) % Lymph % (Auto) 44.5 (25.0-50.0) % [place] % (Auto) 6.8 (2.0-11.0) % Eos % (Auto) 3.1 (0.0-4.0) % Baso % (Auto) 0.5 (0.2-1.2) % PT 13.3 H D (9.5-12.3) SEC INR 1.2 L (2.0-3.5) Sodium (136-145) mmol/L Potassium (3.5-5.1) mmol/L Chloride (98-107) mmol/L Carbon Dioxide (21-32) mmol/L Anion Gap (10-20) mmol/L BUN (7-18) mg/dL Creatinine (0.70-1.30) mg/dL Est Cr Clr Drug Dosing Estimated GFR (MDRD) Glucose (74-106) mg/dL Calcium (8.5-10.1) mg/dL Corrected Calcium (8.5-10.1) mg/dL Total Bilirubin (0.2-1.0) mg/dL AST (15-37) U/L ALT (16-63) U/L Alkaline Phosphatase (46-116) U/L Troponin I (<=0.056) ng/mL C-Reactive Protein (<=0.9) mg/dL NT-Pro-B Natriuret Pep (<=450) pg/mL Total Protein (6.4-8.2) g/dL Albumin (3.4-5.0) g/dL Globulin Albumin/Globulin Ratio SARS-CoV-2 RNA (RT-PCR) Negative (NEGATIVE) 03/12/20 Range/Units 11:20 WBC (4.0-10.0) x10^3/uL RBC (4.5-6.0) x10^6/uL Hgb (14.0-18.0) g/dL Hct (40.0-52.0) % MCV (78.0-93.0) fL MCH (26.0-32.0) pg MCHC (32.0-36.0) g/dL RDW Coeff of Roberta (10.0-15.0) % Plt Count (130-400) x10^3/uL Neut % (Auto) (50.0-80.0) % Lymph % (Auto) (25.0-50.0) % [place] % (Auto) (2.0-11.0) % Eos % (Auto) (0.0-4.0) % Baso % (Auto) (0.2-1.2) % PT (9.5-12.3) SEC INR (2.0-3.5) Sodium 139 (136-145) mmol/L Potassium 3.5 (3.5-5.1) mmol/L Chloride 102 (98-107) mmol/L Carbon Dioxide 28 (21-32) mmol/L Anion Gap 12.5 (10-20) mmol/L BUN 10 (7-18) mg/dL Creatinine 1.2 (0.70-1.30) mg/dL Est Cr Clr Drug Dosing TNP Estimated GFR (MDRD) 57 Glucose 278 H (74-106) mg/dL Calcium 8.2 L (8.5-10.1) mg/dL Corrected Calcium 8.68 (8.5-10.1) mg/dL Total Bilirubin 0.9 (0.2-1.0) mg/dL AST 16 (15-37) U/L ALT 20 (16-63) U/L Alkaline Phosphatase 66 (46-116) U/L Troponin I < 0.017 (<=0.056) ng/mL C-Reactive Protein 0.4 (<=0.9) mg/dL NT-Pro-B Natriuret Pep 705 H (<=450) pg/mL Total Protein 6.9 (6.4-8.2) g/dL Albumin 3.4 (3.4-5.0) g/dL Globulin 3.5 Albumin/Globulin Ratio 0.97 SARS-CoV-2 RNA (RT-PCR) (NEGATIVE) Meds: Medications Discontinued Medications Generic Name Dose Route Start Last Admin Trade Name Freq PRN Reason Stop Dose Admin Albuterol/Ipratropium 3 ml 03/12/20 11:06 03/12/20 11:22 Duoneb 3.0-0.5 Mg/3 Ml NEB 03/12/20 11:07 3 ml ONETIME ONE Administration - Re-Assessments/Exams Free Text/Narrative Re-Assessment/Exam: 03/12/20 11:15 COVID testing negative 03/12/20 12:00 Patient had good relief with the nebulizer treatment, feels can breathe better. Labs are all fairly stable. INR is low at 1.2. Did reduce his dose to 2.5 mg on Wednesdays as had been running high "a few weeks ago". Will return back to taking 2.5 mg on and and 5 mg other days. Start nebulizer treatments at home. Injections given today. Patient is comfortable with this plan, states there are nurses available at [facility] if would need assistance to do the nebs. Departure - Departure Time of Disposition: 12:14 Disposition: Home, Self-Care 01 Condition: Fair Clinical Impression: Subtherapeutic international normalized ratio (INR), COPD exacerbation, Maxillary sinusitis, acute - Discharge Information *PRESCRIPTION DRUG MONITORING PROGRAM REVIEWED*: No *COPY OF PRESCRIPTION DRUG MONITORING REPORT IN PATIENT CEE: No Instructions: Shortness of Breath, Adult, [id number], How to Use a Nebulizer , Adult Referrals: Yolanda Nassar DO [Primary Care Provider] - Forms: ED Department Discharge Additional Instructions: 1. Rest 2. Push fluids 3. DuoNebs three to four times a day for the next 3 days then as needed 4. Zithromax 250 mg daily starting tomorrow, first dose given here in the ER 5. Continue to monitor oxygen levels 6. Increase Warfarin to 5 mg 5 times per week, 2.5 mg on Friday and Friday 7. Return if breathing worsens or have other concerns 8. Follow up with primary care provider in 5-7 days for recheck. Sepsis Event Note (ED) - Evaluation Sepsis Screening Result: No Definite Risk - Focused Exam Vital Signs: Vital Signs Temp Pulse Resp BP Pulse Ox 03/12/20 10:35 97.7 F 96 20 156/72 H 98 - My Orders Last 24 Hours: My Active Orders 03/12/20 11:06 RT Aerosol Therapy [RC] ASDIRECTED 03/12/20 12:09 Albuterol/Ipratropium [Take Home: Albuterol/Ipratropium, 4 Neb Pack] 1 packet NEB ONETIME ONE Azithromycin [Take Home: Azithromycin 250 MG, 2 Tab Pack] 1 packet PO ONETIME ONE cefTRIAXone [Rocephin] 1 gm IM ONETIME ONE methylPREDNISolone acetate [Depo-Medrol] 80 mg IM ONETIME ONE - Assessment/Plan Last 24 Hours: My Active Orders 03/12/20 11:06 RT Aerosol Therapy [RC] ASDIRECTED 03/12/20 12:09 Albuterol/Ipratropium [Take Home: Albuterol/Ipratropium, 4 Neb Pack] 1 packet NEB ONETIME ONE Azithromycin [Take Home: Azithromycin 250 MG, 2 Tab Pack] 1 packet PO ONETIME ONE cefTRIAXone [Rocephin] 1 gm IM ONETIME ONE methylPREDNISolone acetate [Depo-Medrol] 80 mg IM ONETIME ONE
[2020-03-12 11:52] LABS: ANION GAP 12.5 mmol/L (10-20); CHLORIDE,CL 102 mmol/L (98-107); SODIUM,NA 139 mmol/L (136-145)
--- NOTE | 2020-03-12 11:54 | CR ---
[id number] RAD/RAD Chest PA And Lateral EXAM: FRONTAL AND LATERAL CHEST INDICATION: SHORTNESS OF BREATH. COMPARISON: October 24, 2019. DISCUSSION: Mild cardiomegaly with borderline central vascular congestion, unchanged. No effusions. Sternotomy. Hyperinflation is consistent with chronic obstructive pulmonary disease. IMPRESSION: 1. Cardiomegaly with stable mild central vascular congestion. Alvarez Valentine MD 03/12/20 1153 Thank you for allowing us to participate in the care of your patient.
[2020-03-12] MEDS ORDERED: Take Home: Albuterol/Ipratropium 3.0-0.5 MG/3 ML Neb Soln, 4 Neb Pack NEB ONE (12:09)
[2020-03-12] MEDS ORDERED: cefTRIAXone 1 GM Vial IM ONE (12:09)
[2020-03-12] MEDS ORDERED: Take Home: Azithromycin 250 MG, 2 Tab Pack PO ONE (12:09)
[2020-03-12] MEDS ORDERED: methylPREDNISolone Acetate 40 MG/ML SDV IM ONE (12:09)
== END 2020-03-12 12:54 | disposition home or self-care (01) ==
LOC: VM.ED 10:31
DX: J44.1 Chronic obstructive pulmonary disease with (acute) exacerbation (principal); J01.00 Acute maxillary sinusitis, unspecified; R79.1 Abnormal coagulation profile; Z20.828 Contact with and (suspected) exposure to other viral communicable diseases; I13.0 Hypertensive heart and chronic kidney disease with heart failure and stage 1 through stage 4 chronic kidney disease, or unspecified chronic kidney disease; I50.9 Heart failure, unspecified; N18.2 Chronic kidney disease, stage 2 (mild); E78.00 Pure hypercholesterolemia, unspecified; I48.91 Unspecified atrial fibrillation; I25.10 Atherosclerotic heart disease of native coronary artery without angina pectoris; E66.9 Obesity, unspecified; Z86.73 Personal history of transient ischemic attack (TIA), and cerebral infarction without residual deficits; Z88.1 Allergy status to other antibiotic agents; Z88.8 Allergy status to other drugs, medicaments and biological substances; Z79.899 Other long term (current) drug therapy
CPT/HCPCS: 36415; 71046; 80053; 83880; 84484; 85025; 85610; 86140; 94640; 96372; 99284-GF; 99285-25; A9270-GY; J0696; J1030; J7620-GY; U0002

== ENCOUNTER 2020-03-14 11:32 | Inpatient (IN) | payer MEDICARE, BC ==
[2020-03-14] MEDS ORDERED: Sodium Chloride 0.9% 10 ML Syringe FLUSH PRN (12:14)
[2020-03-14] MEDS ORDERED: Hypromellose 0.3% Ophth Soln 15 ML Bottle EYEBOTH PRN (12:23)
[2020-03-14 13:01] LABS: ANION GAP 12.5 mmol/L (10-20); CHLORIDE,CL 100 mmol/L (98-107); SODIUM,NA 139 mmol/L (136-145)
[2020-03-14] MEDS: Albuterol/Ipratropium 3.0-0.5 MG/3 ML Neb Soln NEB PRN (13:19)
[2020-03-14] MEDS: cefTRIAXone 1 GM Vial IVPUSH SCH (13:19)
[2020-03-14] MEDS: methylPREDNISolone Sodium Succinate 40 MG/1 ML SDV IVPUSH SCH (13:19)
[2020-03-14] MEDS: Potassium Chloride 20 MEQ Tab.ER PO SCH ×2 (13:19→21:11)
--- NOTE | 2020-03-14 16:06 | CR ---
[id number] RAD/RAD Chest PA And Lateral EXAM: FRONTAL AND LATERAL CHEST INDICATION: COUGH. COMPARISON: March 12, 2020. DISCUSSION: Hyperinflation is compatible with underlying chronic obstructive pulmonary disease. Mild cardiomegaly without evidence of congestive heart failure. Mild linear scarring or atelectasis in the lung bases with no acute infiltrates identified. Sternotomy. IMPRESSION: 1. No acute findings. Alvarez Valentine MD 03/14/20 [id number] Thank you for allowing us to participate in the care of your patient.
[2020-03-14] MEDS: Omeprazole 20 MG Cap.CR PO SCH (16:32)
[2020-03-14] MEDS: Albuterol 0.083% 2.5 MG/3 ML Neb Soln NEB SCH ×2 (16:32→21:11)
[2020-03-14] MEDS ORDERED: Enoxaparin 40 MG/0.4 ML Syringe SUBCUT ONE (16:59)
--- NOTE | 2020-03-14 18:40 | PCM.SN.2 ---
- Free Text/Narrative Note: see dictated full H and P An 89 year-old gentlemen with pertinent history of atrial fibrillation, COPD, asthma, CAD, hypertension, and heart failure presented to the clinic today for worsen shortness of breath. He noticed increased shortness of breath, white clear phlegm production, palpitation, and weakness 3 days prior to this clinic visit on Friday night. Friday morning 2 days prior to this clinic visit, he went to emergency room for shortness of breath. In addition, he stated that he is feeling drainage going back into his throat and causes him to cough. He was diagnosed with COPD exacerbation, acute maxillary sinusitis, and sub therapeutic INR level. DuoNebs and Zithromax were prescribed. However, he did not get his nebulizer until yesterday. After trying two doses of nebulizer, he did not notice any improvement. He was not able to sleep last night and had to sit in the chair to help with breathing. He reported that his CPAP used to deliver supplemental oxygen 8 years ago, but his current one does not. He is hoping to be hospitalized. he has a known EF of 60 %, mild Aortic stenosis. He is having no chest pain. Today is hospital day 1. ROS Cardiovascular: - Denies chest pain, or dizziness - Reports palpitation at times Respiratory: - Shortness of breath - Unable to walk more than 20 feet without stopping - I feel drainage going back into my throat and cause me to cough Physical Vitals: - Temperature: 98.6F - Heart rate: 56 - Blood pressure: 137/70 - Pain: 0/10 Cardiovascular: - Regular S1, S2 Head - Normocephelic, nontruamatic - Maxillary sinus tender to palpation on both sides Respiratory: - Inspiratory and expiratory wheezing Gastrointestinal - Non-tender to touch - Normoactive Assessment - Subtherapeutic international normalized ratio - COPD exacerbation - Maxillary sinusitis Plan - Rocephine - X ray - O2 - Sputum culture - Solu-medrol
[2020-03-14] MEDS ORDERED: Warfarin 5 MG Tab PO SCH (20:00)
[2020-03-14] MEDS: Metoprolol Succinate 50 MG Tab.ER PO SCH (21:07)
--- NOTE | 2020-03-14 23:41 | HP ---
CHIEF COMPLAINT: Cough and shortness of breath. HISTORY OF PRESENT ILLNESS: This is an 89-year-old gentleman who lives at assisted living with multiple medical comorbidities, who was in the emergency room 2 days ago after having 1 day at that time of cough productive of white sputum, shortness of breath, and wheezing. He was sent home on Zithromax which he took for 2 days, but has not had any improvement. They ordered him some nebulizers and he just got them yesterday. COVID testing was negative. Chest x- ray did not show an infiltrate, but he was having sinus pain which continues. He is not currently having any sore throat. He is not on any baseline oxygen, but does use CPAP. The patient has a known history of mild aortic stenosis. His EF is 60%. He was recently increased on his potassium supplements. He has had no fever or chills. ALLERGIES: Include fluvastatin (Lescol), Levaquin, Niaspan, and Zocor. MEDICATION LIST: Zithromax 250 mg daily, recently prescribed; Mag-Ox 400 daily; potassium 20 mEq 3 times a day; lactulose 15 mL once daily; Symbicort 2 puffs twice daily; lisinopril 20 mg daily; Norvasc 5 mg daily; MiraLAX daily; iron tabs daily; warfarin 5 mg all days, but 2.5 on Friday and Friday, his INR was recently 1.2 two days ago in the ER; Carafate 1 g daily; Toprol 50 mg twice daily; albuterol as needed; Lasix 20 mg daily; Voltaren gel as needed; Prilosec 20 mg before supper; vitamin K 100 mcg on Friday, Friday, and Friday to stabilize INRs; vitamin C; artificial tear solution; Pravachol 40 mg twice a week; fish oil; multivitamin. 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 PAST SURGICAL HISTORY: He has had his hernia repairs; rectal tumor surgery; prostate surgery; lap cholecystectomy; intestinal resection, 1 was an ex lap, 1 was a partial colectomy, these were in 2013 and 2017; colostomy, and hernia revisions. SOCIAL HISTORY: The patient is . He lives at assisted living. His had lymphoma, about 12 years ago. He is to winter in [place]. He is a nonsmoker. FAMILY HISTORY: Both parents are . He had a sister who had breast cancer and a brother who of brain cancer. REVIEW OF SYSTEMS: General: The patient has not had any weight changes. No fever, no chills. HEENT: He has had sinus congestion, but has not had sore throat. Cardiac: No chest pain or palpitations. Respiratory: He has been short of breath, coughing, and wheezing. Musculoskeletal: No new aches or pains. GI: No new abdominal pain. Otherwise, all systems reviewed and found to be negative unless otherwise stated. PHYSICAL EXAMINATION: Vital Signs: On hospital admit, the patient's temperature 97.4, weight 100.3 kg, pulse 63, blood pressure 135/46, respiratory rate 14, O2 of 97% on 1 L. General: He is in no acute distress. Heart: Regularly irregular with murmur noted. Lungs: Lung sounds are decreased throughout with inspiratory and expiratory wheezing. In fact, I could hear that just walking into the room. Abdomen: Nondistended, nontender. Colostomy in place. Extremities: Warm and dry. He has about trace edema on the right ankle. No edema on the left. No calf tenderness. Mental Status: He is alert. He is orientated x3. LABORATORY DATA: Lab work reviewed showed a white count up to 13.5, hemoglobin 14.7, platelets 209. INR 1.6. Sodium 139, potassium 3.5, chloride 100, bicarb 30, BUN 11, creatinine 0.9, glucose 158, calcium 8.6. CRP 0.8. ProBNP was 1267. Chest x-ray showed no CHF, no infiltrates, hyperinflated. ASSESSMENT AND PLAN: 1. Acute chronic obstructive pulmonary disease exacerbation and asthma exacerbation with cough, increased sputum production, shortness of breath, and wheezing. The patient will be started on Solu-Medrol 40 mg IV daily, Rocephin 1 g IV daily, and scheduled and p.r.n. DuoNebs, oxygen if needed. 2. Sinus infection should be covered by the Rocephin. 3. Atrial fibrillation with history of tachy-da. We will place him on telemetry. We will continue his home medications. We will continue the same Coumadin, but hold the vitamin K and I will repeat an INR tomorrow. I will give him 1 dose of DVT prophylaxis 40 mg of Lovenox currently. His INR was 1.6. 4. History of coronary artery disease and diastolic heart failure. The patient clinically is not having any of those symptoms. We will continue his home medications and monitor. 5. Hypokalemia. He will continue on the same home replacements. 6. Diet-controlled diabetes. We will do q.i.d. checks. Anticipate some hyperglycemia due to steroids. We will give him insulin if he gets over 250. 7. Chronic kidney disease. His kidney function is excellent. We will repeat tomorrow. 8. Chronic constipation. We will continue his bowel regimen. 9. CLL. Elevated white counts are nothing new. He has not required any treatment. We will just continue to monitor. 10.Obstructive sleep apnea. He may use his home CPAP if he has it. 11.DVT prophylaxis. He is on Lovenox. Plan was discussed with the patient who when seen later in the day was feeling almost 100% better, but still coughing. He is a code level 1. MKA: 03/14/2020 18:43:40 MODL: 03/14/2020 23:03:45 /[id number]
[2020-03-15] MEDS: Albuterol/Ipratropium 3.0-0.5 MG/3 ML Neb Soln NEB PRN (03:22)
[2020-03-15] MEDS: Polyethylene Glycol 3350 Powder 17 GM Packet PO SCH (07:57)
[2020-03-15] MEDS: Lactulose Soln 10 GM/15 ML 15 ML UD Cup PO SCH (07:57)
[2020-03-15] MEDS: methylPREDNISolone Sodium Succinate 40 MG/1 ML SDV IVPUSH SCH (07:58)
[2020-03-15] MEDS: Magnesium Oxide 400 MG Tab PO SCH (07:58)
[2020-03-15] MEDS: Lisinopril 20 MG Tab PO SCH (07:58)
[2020-03-15] MEDS: Potassium Chloride 20 MEQ Tab.ER PO SCH ×3 (07:58→20:11)
[2020-03-15] MEDS: Metoprolol Succinate 50 MG Tab.ER PO SCH ×2 (07:58→20:10)
[2020-03-15] MEDS: cefTRIAXone 1 GM Vial IVPUSH SCH (07:59)
[2020-03-15] MEDS: Furosemide 20 MG Tab PO SCH (07:59)
[2020-03-15] MEDS: amLODIPine 5 MG Tab PO SCH (07:59)
[2020-03-15] MEDS: Sucralfate 1 GM Tab PO SCH (07:59)
[2020-03-15 08:17] LABS: CHLORIDE,CL 100 mmol/L (98-107); SODIUM,NA 136 mmol/L (136-145)
[2020-03-15 08:25] LABS: ANION GAP 13.8 mmol/L (10-20)
[2020-03-15] MEDS ORDERED: guaiFENesin 600 MG Tab.ER PO PRN (09:53)
[2020-03-15] MEDS: Albuterol 0.083% 2.5 MG/3 ML Neb Soln NEB SCH ×4 (10:08→20:11)
--- NOTE | 2020-03-15 11:19 | PN ---
Progress Note for ELBERT WELLS Date: 03/15/2020 Room #: VM.204 SUBJECTIVE: This is hospital day #2 on an 89-year-old admitted with an asthma and COPD exacerbation. He improved remarkably after nebs and IV steroids. He was also started on IV Rocephin. He is still coughing during the night, but states he was better during the day. He used to be on oxygen through his CPAP, but no longer has that. He does have CPAP, but did not bring it into the hospital and states he was fine without it. Otherwise, he is not having any pain. He would like us to cancel his GI appointment for Friday. OBJECTIVE: Vital Signs: His weight is 100 kg, blood pressure 139/85, O2 96 on 1 L, pulse 78, and temperature 98.8. Telemetry was reviewed. He had some faster rates up to 122. He was in AFib. He had no bradycardia. General: He is in no acute distress. Heart: Regularly irregular with murmur. Lungs: Sounds are clear to auscultation today without crackles or wheezes. Abdomen: Nondistended. Extremities: Warm and dry, improved edema just trace on both ankles. Mental Status: Alert and orientated x3. Neck: He had no JVD. No lymphadenopathy. Lab work shows white count 11.7 down from yesterday, hemoglobin down to 13.2, and platelets 204. INR up to 1.8. He did get a dose of Lovenox yesterday. Sodium 136, potassium 3.8, chloride 100, bicarb 26, BUN 15, creatinine 1.0, glucose 177, he did have a 270 overnight, and calcium 8.5. ASSESSMENT: 1. [id number] chronic obstructive pulmonary disease and asthma exacerbation. Clinically improving on Rocephin, Solu-Medrol, and DuoNebs. Continue his same treatments. We will try to get oxygen for him at home through a CPAP at night. We will work with the respiratory therapist and healthcare accessories. 2. Sinus infection, covered by the Rocephin. This is improving. 3. Cough related to #1 and #2. We will try some Mucinex. 4. Atrial fibrillation with history of tachy-da. He has only has some slight tachycardia here. We will continue home medications. Continue telemetry. Repeat an INR tomorrow. Keep him on Coumadin, but 5 mg daily. 5. History of coronary artery disease and diastolic heart failure. He is on his home Lasix. He is doing well. 6. Hypokalemia, replaced orally. 7. Diet-controlled diabetes. We will put him on a diabetic diet and continue the q.i.d. Accu-Cheks. 8. Chronic kidney disease. His kidney function has been excellent. We will continue to monitor. 9. Chronic constipation. He is on his home bowel regimen. 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 11.Obstructive sleep apnea, on CPAP at home. 12.Deep vein thrombosis prophylaxis. He is on Coumadin. PLAN: At this point, the patient will continue acute cares. He will continue IV steroids, Rocephin, and DuoNebs. He is a code level 1. Repeat lab work tomorrow. MKA: 03/15/2020 09:52:11 MODL: 03/15/2020 11:00:56 /[id number]
[2020-03-15] MEDS: Omeprazole 20 MG Cap.CR PO SCH (17:33)
[2020-03-15] MEDS ORDERED: Warfarin 5 MG Tab PO SCH (20:00)
[2020-03-16] MEDS: Albuterol/Ipratropium 3.0-0.5 MG/3 ML Neb Soln NEB PRN (02:15)
[2020-03-16 06:56] LABS: ANION GAP 11.4 mmol/L (10-20); CHLORIDE,CL 101 mmol/L (98-107); SODIUM,NA 136 mmol/L (136-145)
[2020-03-16] MEDS: Albuterol 0.083% 2.5 MG/3 ML Neb Soln NEB SCH ×2 (07:22→10:59)
[2020-03-16] MEDS: Lisinopril 20 MG Tab PO SCH (08:17)
[2020-03-16] MEDS: methylPREDNISolone Sodium Succinate 40 MG/1 ML SDV IVPUSH SCH (08:17)
[2020-03-16] MEDS: amLODIPine 5 MG Tab PO SCH (08:17)
[2020-03-16] MEDS: Magnesium Oxide 400 MG Tab PO SCH (08:17)
[2020-03-16] MEDS: Metoprolol Succinate 50 MG Tab.ER PO SCH (08:17)
[2020-03-16] MEDS: cefTRIAXone 1 GM Vial IVPUSH SCH (08:17)
[2020-03-16] MEDS: Potassium Chloride 20 MEQ Tab.ER PO SCH (08:17)
[2020-03-16 08:18] VITALS: BP 124/72; PULSE 95
[2020-03-16] MEDS: Lactulose Soln 10 GM/15 ML 15 ML UD Cup PO SCH (08:18)
[2020-03-16] MEDS: Sucralfate 1 GM Tab PO SCH (08:18)
[2020-03-16] MEDS: Furosemide 20 MG Tab PO SCH (08:18)
[2020-03-16] MEDS: Polyethylene Glycol 3350 Powder 17 GM Packet PO SCH (08:18)
[2020-03-16] MEDS ORDERED: Benzocaine/Cetylpyridinium/Menthol Lozenge MUCMEM PRN (08:33)
--- NOTE | 2020-03-16 10:13 | CR ---
[id number] RAD/RAD Chest PA And Lateral EXAM: FRONTAL AND LATERAL CHEST INDICATION: COUGH. COMPARISON: March 14, 2020. DISCUSSION: Stable cardiomegaly without evidence of congestive heart failure. Mild parenchymal scarring in the lung bases with no acute infiltrates identified. Sternotomy. Tortuous thoracic aorta with dense calcifications. IMPRESSION: 1. No acute findings. Alvarez Valentine MD 03/16/20 1012 Thank you for allowing us to participate in the care of your patient.
[2020-03-16] MEDS ORDERED: Cefuroxime 250 MG Tab PO SCH (20:00)
--- NOTE | 2020-03-17 00:26 | DISCH ---
PRIMARY DISCHARGE DIAGNOSES: 1. An acute chronic obstructive pulmonary disease and asthma exacerbation. 2. Sinus infection. 3. Cough, especially at night related to #1 and #2. 4. 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 He had a couple of faster heart rates initially, but was otherwise controlled on telemetry. He is therapeutic on Coumadin. 5. History of coronary artery disease and diastolic heart failure, stable without any exacerbation. 6. Hypokalemia, replaced orally. 7. Diet-controlled diabetes with hyperglycemia due to steroids. 8. Chronic kidney disease stage 2. Kidney function was excellent. 9. Chronic constipation. His bowels were working well. No diarrhea. He has a colostomy. 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 11.Obstructive sleep apnea, on CPAP at home. 12.Hypoxia with activity. 1 L of oxygen to use with activity ordered on discharge. REASON FOR ADMISSION: On the date of admission, this 89-year-old male who had been in the clinic 2 days previously, presented for ER followup. He was audibly wheezing. He was very short of breath. He was coughing. He was not hypoxic, but he was placed on oxygen and felt much better. He was admitted and placed on IV Solu-Medrol as well as DuoNeb and IV Rocephin. He had previously taken 2 doses of Zithromax. The patient overall is on Symbicort at home, but was not on any oxygen remotely in the past. He did have oxygen through his CPAP. The patient otherwise improved remarkably even by the 1st hospital night; however, continued to cough at home despite getting Mucinex. On the day of discharge, he was up, he was feeling much better. His blood sugars had been quite high initially. We switched him over to a diabetic diet. We discussed this was likely due to steroids and this morning his blood sugar was 135. The patient had a negative COVID test for discharge to his assisted living facility. He had also had a negative COVID test in the emergency room prior to admission. It had been found out though that there were a couple of people at his facility that did have COVID during a mass screening which took place while he was in the hospital. He otherwise currently is on Symbicort at home. His COPD was reported to be mild and having more of asthma, so that is why we did not start him on Spiriva, but he did get DuoNebs while he was here and he seemed to do well with those. Otherwise, all of his other comorbidities were stable. His INR was 2.5 today. We did hold his vitamin K which he takes to stabilize his INR as he was 1.2 previous to admission. PHYSICAL EXAMINATION: Discharging Vitals: Include a temperature of 98.4, pulse 74, blood pressure 124/72, respiratory rate 18, and O2 of 96 on room air. General: He is in no acute distress. Heart: Regularly irregular with just fine expiratory wheezing noted today. No crackles. Abdomen: Positive bowel sounds. Soft, nontender. Extremities: Warm and dry. No edema. His swelling that he had in his right leg has greatly improved. Mental Status: He is alert, he is orientated x3. LABORATORY DATA: Laboratory work did show white count up to 19.5 today from 11.7. Given his history of CLL, we did repeat a chest x-ray which showed no fluid, no infiltrates. No sputum culture was obtained as we felt this was asthma and COPD. His INR again was 2.5. His creatinine was 1.1. DISCHARGE PLANS/INSTRUCTIONS: The patient will have a BMP, INR, and CBC in 1 week's time. He is going back to [facility] on prednisone 40 mg daily for 5 days, Ceftin twice daily for another 3 days, Zithromax was discontinued. He will see Dr. Nassar in 1 to 2 weeks by video visit for a post-hospital followup. He will continue his nebulizers up to 4 times a day for breathing, the DuoNebs, he resumed his Symbicort. Cough drops were okay to use and if that does not work, codeine cough syrup may be used. This was all discussed with the patient who was agreeable to the treatment plan. Greater than 30 minutes spent on the discharge process. MKA: 03/16/2020 14:50:20 MODL: 03/17/2020 00:18:25 /[id number]
== END 2020-03-16 11:25 | disposition home or self-care (01) | DRG 191 ==
LOC: VM.MS 11:32
PROVIDERS: ADMIT Internal Medicine; ATTEND Internal Medicine
DX: J44.1 Chronic obstructive pulmonary disease with (acute) exacerbation (principal); C91.10 Chronic lymphocytic leukemia of B-cell type not having achieved remission; I50.30 Unspecified diastolic (congestive) heart failure; I13.0 Hypertensive heart and chronic kidney disease with heart failure and stage 1 through stage 4 chronic kidney disease, or unspecified chronic kidney disease; Z20.828 Contact with and (suspected) exposure to other viral communicable diseases; I48.91 Unspecified atrial fibrillation; J01.00 Acute maxillary sinusitis, unspecified; E87.6 Hypokalemia; G47.33 Obstructive sleep apnea (adult) (pediatric); K59.09 Other constipation; E11.22 Type 2 diabetes mellitus with diabetic chronic kidney disease; N18.2 Chronic kidney disease, stage 2 (mild); E11.65 Type 2 diabetes mellitus with hyperglycemia; T38.0X5A Adverse effect of glucocorticoids and synthetic analogues, initial encounter; I25.10 Atherosclerotic heart disease of native coronary artery without angina pectoris; E78.5 Hyperlipidemia, unspecified; N40.0 Benign prostatic hyperplasia without lower urinary tract symptoms; E55.9 Vitamin D deficiency, unspecified; Z88.8 Allergy status to other drugs, medicaments and biological substances; Z79.899 Other long term (current) drug therapy; Z95.1 Presence of aortocoronary bypass graft; Z86.73 Personal history of transient ischemic attack (TIA), and cerebral infarction without residual deficits; Z85.048 Personal history of other malignant neoplasm of rectum, rectosigmoid junction, and anus
CPT/HCPCS: 36415; 71046; 80048; 82962; 83880; 85025; 85610; 86140; 94640; 94760; A9270-GY; J0696; J1650; J2920; J7613-GY; J7620-GY; U0002

== ENCOUNTER 2021-04-06 08:48 | Emergency (ER) | payer MEDICARE, BC ==
[2021-04-06] MEDS ORDERED: Sodium Chloride 0.9% 10 ML Syringe FLUSH PRN (09:38)
--- NOTE | 2021-04-06 09:48 | EDM.PDOC ---
ED HPI GENERAL MEDICAL PROBLEM - General Stated Complaint: RAPID HR Time Seen by Provider: 04/06/21 09:23 Source of Information: Reports: Patient, EMS - History of Present Illness INITIAL COMMENTS - FREE TEXT/NARRATIVE: Jani is an 89 y/o male who is brought to the ER this AM with mild SOB and chest discomfort that he describes as "rumblings". 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 He reports he has had about 3 episodes of this feeling since Friday. He was a bit SOB on the ambulance ride in and was given a DUoneb which seemed to resolve the SOB. In fact by the time SASH INSTALLER saw patient he reports he is now fine. Also of note is that on Friday he was at a resident meeting at the [facility] and to discuss meals and a day after, one of the women at the meeting tested positive for COVID and had no sx, so his POA reports that she thinks he has been a bit anxious since he is now on quarantine at the assisted living facility. - Related Data Allergies Allergy/AdvReac Type Severity Reaction Status Date / Time levofloxacin [From Levaquin] Allergy Unknown Other Verified 04/06/21 09:50 fluvastatin sodium AdvReac Unknown Other Verified 04/06/21 09:50 [From Lescol] niacin AdvReac Unknown Other Verified 04/06/21 09:50 [From Niaspan Extended-Release] simvastatin [From Zocor] AdvReac Unknown Other Verified 04/06/21 09:50 Home Meds: Home Meds Multivitamin [Multi-Vitamin Daily] 1 each PO DAILY 10/23/13 [History] [place]-3 Fatty Acids [Fish Oil] 1,000 mg PO DAILY 10/23/13 [History] Pravastatin [Pravachol] 40 mg PO MOTH@199910/23/13 [History] amLODIPine [Norvasc] 5 mg PO DAILY 10/23/13 [History] Omeprazole [Prilosec] 1 tab PO ACDINNER 05/08/14 [History] Albuterol [Ventolin HFA] 1 - 2 puff INH Q4H PRN 11/13/14 [History] Furosemide 20 mg PO DAILY 11/13/14 [History] Sucralfate [Carafate] 1 gram PO DAILY 11/13/14 [History] Budesonide/Formoterol Fumarate [Symbicort 80-4.5 MCG] 2 puff INH BID 04/27/16 [History] Dextran 70/Hypromellose [Artificial Tears] 1 drop EYEBOTH Q4H PRN 05/21/16 [History] Phytonadione [Vitamin K] 100 mcg PO MOWEFR 05/21/16 [History] lisinopriL [Prinivil] 20 mg PO DAILY 05/21/16 [History] Diclofenac Sodium [Voltaren 1% Gel] 1 dose TOP DAILY PRN 08/31/18 [History] Ascorbic Acid [Vitamin C] 250 mg PO DAILY 03/25/19 [History] Ferrous Sulfate [Iron] 325 mg PO DAILY 03/25/19 [History] Lactulose [Chronulac] 15 ml PO DAILY 03/25/19 [History] Magnesium Oxide [Mag-Oxide] 400 mg PO DAILY 03/12/20 [History] Metoprolol Succinate [Toprol XL] 50 mg PO BID 03/12/20 [History] polyethylene glycoL 3350 [MiraLAX] 17 gm PO DAILY 03/12/20 [History] Albuterol [Proventil Neb Soln] 2.5 mg NEB QIDRT neb 03/16/20 [Rx] Albuterol/Ipratropium [DuoNeb 3.0-0.5 MG/3 ML] 3 ml NEB Q4HRRT PRN #120 neb 03/16/20 [Rx] Cefuroxime [Ceftin] 250 mg PO BID #6 tablet 03/16/20 [Rx] Codeine/guaiFENesin [Robitussin AC] 10 ml PO Q4H PRN #180 ml 03/16/20 [Rx] Potassium Chloride [Klor-Con M20] 20 meq PO BID #0 03/16/20 [Rx] Warfarin [Coumadin] 5 mg PO SUTUWETHSA@1999 #0 03/16/20 [Rx] predniSONE [Prednisone] 40 mg PO DAILY #10 tablet 03/16/20 [Rx] Past Medical History HEENT History: Reports: Cataract, Other (See Below) Other HEENT History: PINGUECULA (BENIGN THIN GROWTH OF TISSUE OVER SCLERA). 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 MYOPIA. ASTIGMATISM Cardiovascular History: Reports: Afib, CAD, Heart Failure, High Cholesterol, Hypertension, Pulmonary Hypertension Other Cardiovascular History: STENOSIS OF LEFT CAROTID ARTERY. ENDOCARDITIS. VENOUS INSUFFICIANCY. AORTIC STENOSIS Respiratory History: Reports: Asthma, COPD, Sleep Apnea, SOB Other Respiratory History: PULMONARY HYPERINFLATION Other Gastrointestinal History: SMALL BOWEL OBSTRUCTION. HERNIA. DIARRHEA Genitourinary History: Other Genitourinary History: BPH (BENIGN PROSTATIC HYPERPLASIA). CHRONIC KIDNEY DISEASE, STAGE 2 (MILD). MALIGNANT NEOPLASM PROSTATE Musculoskeletal History: Reports: Back Pain, Chronic Other Musculoskeletal History: FACET HYPERTROPHY OF LUMBAR REGION. LUMBAR DEGENERATIVE DISC DISEASE Neurological History: Reports: CVA Other Neuro History: HERNIA CEREBRI Psychiatric History: Reports: Other (See Below) Other Psychiatric History: PAIN MEDICATION AGREEMENT Endocrine/Metabolic History: Reports: Obesity/BMI 30+, Other (See Below) Other Endocrine/Metabolic History: PREDIABETES Hematologic History: Reports: Anemia Other Hematologic History: VITAMIN D DEFICIENCY. LEUKOCYTOSIS Oncologic (Cancer) History: Reports: Prostate Other Oncologic History: HX OF CHEMOTHERAPY. HX OF RADIATION THERAPY. BASAL CELL CARCINOMA OF SKIN. RECTAL CANCER - Past Surgical History Head Surgeries/Procedures: Reports: None Cardiovascular Surgical History: Reports: Coronary Artery Bypass GI Surgical History: Reports: Cholecystectomy, Colonoscopy, Colostomy, EGD, Hernia Repair/Other Social & Family History - Family History Family Medical History: No Pertinent Family History - Caffeine Use Caffeine Use: Reports: Coffee Review of Systems - Review of Systems Review Of Systems: See Below Constitutional: Reports: No Symptoms Eyes: Reports: No Symptoms Ears: Reports: No Symptoms Nose: Reports: No Symptoms Mouth/Throat: Reports: No Symptoms Respiratory: Reports: No Symptoms GI/Abdominal: Reports: No Symptoms Genitourinary: Reports: No Symptoms Musculoskeletal: Reports: No Symptoms Skin: Reports: No Symptoms Neurological: Reports: No Symptoms Psychiatric: Reports: No Symptoms ED EXAM, GENERAL - Physical Exam Exam: See Below General Appearance: Alert, WD/WN, No Apparent Distress, Other (Elderly male) Eye Exam: Bilateral Eye: PERRL Ears: Normal External Exam, Normal Canal, Hearing Grossly Normal Nose: Normal Inspection, Normal Mucosa Throat/Mouth: Normal Inspection, Normal Lips, Normal Oropharynx Head: Atraumatic, Normocephalic Neck: Normal Inspection Respiratory/Chest: No Respiratory Distress, Lungs Clear, Chest Non-Tender Cardiovascular: Normal Peripheral Pulses, No Murmur, Irregularly Irregular GI/Abdominal: Normal Bowel Sounds, Soft (Male) Exam: Deferred Rectal (Males) Exam: Deferred Back Exam: Normal Inspection Extremities: Normal Inspection, Normal Range of Motion Neurological: Alert, Oriented, CN II-XII Intact, Normal Cognition, No Motor/Sensory Deficits Psychiatric: Normal Affect, Normal Mood Skin Exam: Warm, Dry, Intact, Normal Color #1 Interpretation EKG Date: 04/06/21 Time: 08:56 Rhythm: A-Fib Rate (Beats/Min): 116 [place]: Normal P-Wave: Absent QRS: Normal ST-T: Normal Comparison: No Change EKG Interpretation Comments: Atrial Fib with PVCs Course - Vital Signs Text/Narrative:: 0923 The patient was seen by the SASH INSTALLER. Labs, EKG, and CXR ordered. He had no pain or SOB on arrival, no meds given. EKG consistent with previous study on file from 03/19/2019. 1045 Labs reviewed. CBC WBC=13.6, Lymphs 51.4%, suspect elevated WBC due to steroids. INR=2.8, theraapuetic, CMP K=3.1, Troponin neg. Will have the patient increase his potassium at home to 40mEq BID (currently he is doing 20mEq 2x day) and then recheck with his PCP. CXR neg. Sx consistent with patient having the Tachy-Mann Syndrome and he is scheduled for a Cardiology consult in the next 7-10 days. Also cannot exclude some mild anxiety. Will send him home with routine meds and have him follow with his PCP. He was given discharge instructions and he left the ER in stable condition. Last Recorded V/S: Last Vital Signs Temp 35.5 C L 04/06/21 08:50 Pulse 92 04/06/21 08:50 Resp 20 04/06/21 08:50 BP 172/91 H 04/06/21 08:50 Pulse Ox 99 04/06/21 08:50 - Orders/Labs/Meds Orders: Active Orders 24 hr Category Date Time Status EKG Documentation Completion [RC] STAT Care 04/06/21 09:38 Active Chest 2V [CR] Stat Exams 04/06/21 09:40 Ordered UA RFX PASCUAL AND CULT IF INDIC [URIN] Stat Lab 04/06/21 09:39 Ordered Sodium Chloride 0.9% [Saline Flush] Med 04/06/21 09:38 Active 10 ml FLUSH ASDIRECTED PRN Saline Lock Insert [OM.PC] Stat Oth 04/06/21 09:38 Ordered Medication Orders Sodium Chloride (Sodium Chloride 0.9% 10 Ml Syringe) 10 ml FLUSH ASDIRECTED PRN PRN Reason: Keep Vein Open Labs: Laboratory Tests 04/06/21 04/06/21 04/06/21 Range/Units 08:52 08:52 08:52 WBC 13.6 H (4.0-10.0) x10^3/uL RBC 4.81 (4.5-6.0) x10^6/uL Hgb 13.7 L D (14.0-18.0) g/dL Hct 40.1 (40.0-52.0) % MCV 83.4 (78.0-93.0) fL MCH 28.5 (26.0-32.0) pg MCHC 34.2 (32.0-36.0) g/dL RDW Coeff of Roberta 15.2 H (10.0-15.0) % Plt Count 228 (130-400) x10^3/uL Neut % (Auto) 39.0 L (50.0-80.0) % Lymph % (Auto) 51.4 H (25.0-50.0) % [place] % (Auto) 7.1 (2.0-11.0) % Eos % (Auto) 2.2 (0.0-4.0) % Baso % (Auto) 0.3 (0.2-1.2) % PT 31.1 H (9.9-12.5) SEC INR 2.8 (2.0-3.5) Sodium 140 (136-145) mmol/L Potassium 3.1 L (3.5-5.1) mmol/L Chloride 102 (98-107) mmol/L Carbon Dioxide 31 (21-32) mmol/L Anion Gap 10.1 (5-15) mmol/L BUN 10 (7-18) mg/dL Creatinine 0.8 (0.70-1.30) mg/dL Est Cr Clr Drug Dosing 68.71 mL/min Estimated GFR (MDRD) > 60 Glucose 150 H (70-99) mg/dL Calcium 8.5 (8.5-10.1) mg/dL Corrected Calcium 9.0 (8.5-10.1) mg/dL Magnesium 1.5 L (1.8-2.4) mg/dL Total Bilirubin 0.9 (0.2-1.0) mg/dL AST 21 (15-37) U/L ALT 21 (16-63) U/L Alkaline Phosphatase 74 (46-116) U/L Troponin I High Sens 10 (<=76) ng/L C-Reactive Protein < 0.2 (<=0.9) mg/dL NT-Pro-B Natriuret Pep 761 H (<=450) pg/mL Total Protein 7.0 (6.4-8.2) g/dL Albumin 3.4 (3.4-5.0) g/dL Globulin 3.6 Albumin/Globulin Ratio 0.94 TSH, Ultra Sensitive 1.000 (0.358-3.74) uIU/mL SARS CoV-2 RNA Rapid SHAWANDA (NEGATIVE) 04/06/21 Range/Units 09:45 WBC (4.0-10.0) x10^3/uL RBC (4.5-6.0) x10^6/uL Hgb (14.0-18.0) g/dL Hct (40.0-52.0) % MCV (78.0-93.0) fL MCH (26.0-32.0) pg MCHC (32.0-36.0) g/dL RDW Coeff of Roberta (10.0-15.0) % Plt Count (130-400) x10^3/uL Neut % (Auto) (50.0-80.0) % Lymph % (Auto) (25.0-50.0) % [place] % (Auto) (2.0-11.0) % Eos % (Auto) (0.0-4.0) % Baso % (Auto) (0.2-1.2) % PT (9.9-12.5) SEC INR (2.0-3.5) Sodium (136-145) mmol/L Potassium (3.5-5.1) mmol/L Chloride (98-107) mmol/L Carbon Dioxide (21-32) mmol/L Anion Gap (5-15) mmol/L BUN (7-18) mg/dL Creatinine (0.70-1.30) mg/dL Est Cr Clr Drug Dosing mL/min Estimated GFR (MDRD) Glucose (70-99) mg/dL Calcium (8.5-10.1) mg/dL Corrected Calcium (8.5-10.1) mg/dL Magnesium (1.8-2.4) mg/dL Total Bilirubin (0.2-1.0) mg/dL AST (15-37) U/L ALT (16-63) U/L Alkaline Phosphatase (46-116) U/L Troponin I High Sens (<=76) ng/L C-Reactive Protein (<=0.9) mg/dL NT-Pro-B Natriuret Pep (<=450) pg/mL Total Protein (6.4-8.2) g/dL Albumin (3.4-5.0) g/dL Globulin Albumin/Globulin Ratio TSH, Ultra Sensitive (0.358-3.74) uIU/mL SARS CoV-2 RNA Rapid SHAWANDA Negative (NEGATIVE) Meds: Medications Generic Name Dose Route Start Last Admin Trade Name Freq PRN Reason Stop Dose Admin Sodium Chloride 10 ml 04/06/21 09:38 Sodium Chloride 0.9% 10 Ml Syringe FLUSH ASDIRECTED PRN Keep Vein Open Departure - Departure Time of Disposition: 11:11 Disposition: Home, Self-Care 01 Condition: Good Clinical Impression: Tachy-mann syndrome, Hypokalemia Atrial fibrillation Qualifiers: Atrial fibrillation type: longstanding persistent Qualified Code(s): I48.11 - Longstanding persistent atrial fibrillation - Discharge Information *PRESCRIPTION DRUG MONITORING PROGRAM REVIEWED*: Not Applicable *COPY OF PRESCRIPTION DRUG MONITORING REPORT IN PATIENT CEE: Not Applicable Instructions: Hypokalemia, Atrial Fibrillation Referrals: Yolanda Nassar, [Primary Care Provider] - Additional Instructions: -Increase your Potassium to 2x (40mEq twice) daily for the next week, then check with PCP for further instructions -Follow up with your clinic provider next weeks for a recheck and repeat labs. [facility] will call you back today with an appt time. -Keep your Cardiology appts as previously arranged for pace placement -Your COVID test was negative today -Return as needed to the ER Sepsis Event Note (ED) - Focused Exam Vital Signs: Vital Signs Temp Pulse Resp BP Pulse Ox 04/06/21 08:50 35.5 C L 92 20 172/91 H 99 - My Orders Last 24 Hours: My Active Orders 04/06/21 09:38 EKG Documentation Completion [RC] STAT Sodium Chloride 0.9% [Saline Flush] 10 ml FLUSH ASDIRECTED PRN Saline Lock Insert [OM.PC] Stat 04/06/21 09:39 UA RFX PASCUAL AND CULT IF INDIC [URIN] Stat 04/06/21 09:40 Chest 2V [CR] Stat - Assessment/Plan Last 24 Hours: My Active Orders 04/06/21 09:38 EKG Documentation Completion [RC] STAT Sodium Chloride 0.9% [Saline Flush] 10 ml FLUSH ASDIRECTED PRN Saline Lock Insert [OM.PC] Stat 04/06/21 09:39 UA RFX PASCUAL AND CULT IF INDIC [URIN] Stat 04/06/21 09:40 Chest 2V [CR] Stat Assessment:: 1)Tachy-Mann Syndrome 2)Atrial Fib 3)Hypokalemia Plan: -As above -Increase potassium to 40mEq po BID for 1 week, then have PCP recheck the level and advise doing.
[2021-04-06 10:03] VITALS: PULSE 92
[2021-04-06 10:28] LABS: CHLORIDE,CL 102 mmol/L (98-107); SODIUM,NA 140 mmol/L (136-145)
[2021-04-06 10:30] LABS: ANION GAP 10.1 mmol/L (5-15)
--- NOTE | 2021-04-06 11:13 | CR ---
[id number] RAD/RAD Chest PA And Lateral EXAM: RAD Chest PA And Lateral INDICATION: SHORT OF BREATH. COMPARISON: March 16, 2020. DISCUSSION/IMPRESSION: Cardiomegaly and chronic central vascular congestion. Median sternotomy. Aorta atherosclerosis. Aorta is mild tortuous in course, unchanged from the prior examination. 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 Mild bibasal scarring. No evidence of pneumonia. No pleural effusion or pneumothorax. Saw Myers MD 04/06/21 1113 Thank you for allowing us to participate in the care of your patient.
[2021-04-06 12:39] VITALS: BP 139/76
== END 2021-04-06 11:25 | disposition home or self-care (01) ==
LOC: VM.ED 08:48
DX: I48.11 Longstanding persistent atrial fibrillation (principal); E87.6 Hypokalemia; I49.5 Sick sinus syndrome; I13.0 Hypertensive heart and chronic kidney disease with heart failure and stage 1 through stage 4 chronic kidney disease, or unspecified chronic kidney disease; N18.2 Chronic kidney disease, stage 2 (mild); I50.9 Heart failure, unspecified; I25.10 Atherosclerotic heart disease of native coronary artery without angina pectoris; E78.00 Pure hypercholesterolemia, unspecified; J44.9 Chronic obstructive pulmonary disease, unspecified; E66.9 Obesity, unspecified; Z68.30 Body mass index [BMI] 30.0-30.9, adult; Z86.73 Personal history of transient ischemic attack (TIA), and cerebral infarction without residual deficits; Z88.8 Allergy status to other drugs, medicaments and biological substances; Z88.1 Allergy status to other antibiotic agents; Z79.899 Other long term (current) drug therapy; Z20.822 Contact with and (suspected) exposure to COVID-19
CPT/HCPCS: 36415; 71046; 80053; 83735; 83880; 84443; 84484; 85025; 85610; 86140; 93005; 99285; U0002; 93010; 99284

== ENCOUNTER 2021-04-06 13:53 | Emergency (ER) | payer MEDICARE, BC ==
--- NOTE | 2021-04-06 14:16 | EDM.PDOC ---
ED HPI GENERAL MEDICAL PROBLEM - General Time Seen by Provider: 04/06/21 14:00 Source of Information: Reports: Patient, Family - History of Present Illness INITIAL COMMENTS - FREE TEXT/NARRATIVE: Jani is an 89 y/o male who presents to the ER again with palpitations that he has again had another 2 times since being discharged form the ER this AM. He describes it as a "quivering rumbling feeling"in his chest. He has a known diagnosis or Tachy-Mann Syndrome and is waiting to see cardiology for a pacer placement. He has had a total of 4 episodes today and is requesting to be admitted. On arrival to the ER he denies any sx. - Related Data Allergies Allergy/AdvReac Type Severity Reaction Status Date / Time levofloxacin [From Levaquin] Allergy Unknown Other Verified 04/06/21 09:50 fluvastatin sodium AdvReac Unknown Other Verified 04/06/21 09:50 [From Lescol] niacin AdvReac Unknown Other Verified 04/06/21 09:50 [From Niaspan Extended-Release] simvastatin [From Zocor] AdvReac Unknown Other Verified 04/06/21 09:50 Home Meds: Home Meds Multivitamin [Multi-Vitamin Daily] 1 each PO DAILY 10/23/13 [History] Pravastatin [Pravachol] 40 mg PO MOTH@199910/23/13 [History] amLODIPine [Norvasc] 5 mg PO DAILY 10/23/13 [History] Omeprazole [Prilosec] 1 tab PO ACDINNER 05/08/14 [History] Albuterol [Ventolin HFA] 1 - 2 puff INH Q4H PRN 11/13/14 [History] Furosemide 40 mg PO DAILY 11/13/14 [History] Sucralfate [Carafate] 1 gram PO DAILY 11/13/14 [History] Budesonide/Formoterol Fumarate [Symbicort 80-4.5 MCG] 2 puff INH BID PRN 04/27/16 [History] Dextran 70/Hypromellose [Artificial Tears] 1 drop EYEBOTH Q4H PRN 05/21/16 [History] Phytonadione [Vitamin K] 100 mcg PO DAILY 05/21/16 [History] lisinopriL [Prinivil] 20 mg PO DAILY 05/21/16 [History] Lactulose [Chronulac] 15 ml PO DAILY 03/25/19 [History] Metoprolol Succinate [Toprol XL] 50 mg PO BID 03/12/20 [History] Potassium Chloride [Klor-Con M20] 40 meq PO BID 04/06/21 [History] Warfarin [Coumadin] 5 mg PO DAILY 04/06/21 [History] glipiZIDE [Glucotrol XL] 5 mg PO DAILY 04/06/21 [History] Past Medical History HEENT History: Reports: Cataract, Other (See Below) Other HEENT History: PINGUECULA (BENIGN THIN GROWTH OF TISSUE OVER SCLERA). 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 MYOPIA. ASTIGMATISM Cardiovascular History: Reports: Afib, CAD, Heart Failure, High Cholesterol, Hypertension, Pulmonary Hypertension Other Cardiovascular History: STENOSIS OF LEFT CAROTID ARTERY. ENDOCARDITIS. VENOUS INSUFFICIANCY. AORTIC STENOSIS Respiratory History: Reports: Asthma, COPD, Sleep Apnea, SOB Other Respiratory History: PULMONARY HYPERINFLATION Other Gastrointestinal History: SMALL BOWEL OBSTRUCTION. HERNIA. DIARRHEA Genitourinary History: Reports: Urinary Incontinence Other Genitourinary History: BPH (BENIGN PROSTATIC HYPERPLASIA). CHRONIC KIDNEY DISEASE, STAGE 2 (MILD). MALIGNANT NEOPLASM PROSTATE Musculoskeletal History: Reports: Back Pain, Chronic Other Musculoskeletal History: FACET HYPERTROPHY OF LUMBAR REGION. LUMBAR DEGENERATIVE DISC DISEASE Neurological History: Reports: CVA Other Neuro History: HERNIA CEREBRI Psychiatric History: Reports: Other (See Below) Other Psychiatric History: PAIN MEDICATION AGREEMENT Endocrine/Metabolic History: Reports: Obesity/BMI 30+, Other (See Below) Other Endocrine/Metabolic History: PREDIABETES Hematologic History: Reports: Anemia Other Hematologic History: VITAMIN D DEFICIENCY. LEUKOCYTOSIS Oncologic (Cancer) History: Reports: Prostate Other Oncologic History: HX OF CHEMOTHERAPY. HX OF RADIATION THERAPY. BASAL CELL CARCINOMA OF SKIN. RECTAL CANCER - Past Surgical History Head Surgeries/Procedures: Reports: None Cardiovascular Surgical History: Reports: Coronary Artery Bypass GI Surgical History: Reports: Cholecystectomy, Colonoscopy, Colostomy, EGD, Hernia Repair/Other Social & Family History - Family History Family Medical History: No Pertinent Family History - Caffeine Use Caffeine Use: Reports: Coffee Review of Systems - Review of Systems Review Of Systems: See Below Constitutional: Reports: No Symptoms Eyes: Reports: No Symptoms Ears: Reports: No Symptoms Nose: Reports: No Symptoms Mouth/Throat: Reports: No Symptoms Respiratory: Reports: No Symptoms Cardiovascular: Reports: Palpitations GI/Abdominal: Reports: No Symptoms Genitourinary: Reports: No Symptoms Musculoskeletal: Reports: No Symptoms Skin: Reports: No Symptoms Neurological: Reports: No Symptoms Psychiatric: Reports: No Symptoms ED EXAM, GENERAL - Physical Exam Exam: See Below General Appearance: Alert, WD/WN, No Apparent Distress, Other (Elderly male) Ears: Hearing Grossly Normal Nose: Normal Inspection, Normal Mucosa Throat/Mouth: Normal Inspection, Normal Lips, Normal Voice Head: Atraumatic, Normocephalic Neck: Supple Respiratory/Chest: No Respiratory Distress, Lungs Clear, Chest Non-Tender Cardiovascular: Normal Peripheral Pulses, No Murmur, Irregularly Irregular GI/Abdominal: Normal Bowel Sounds, Soft, No Abnormal Bruit (Male) Exam: Deferred Rectal (Males) Exam: Deferred Back Exam: Normal Inspection Extremities: No Pedal Edema, Normal Capillary Refill Neurological: Alert, Oriented, CN II-XII Intact, Normal Cognition Psychiatric: Normal Affect, Normal Mood Skin Exam: Warm, Dry, Intact, Normal Color Course - Vital Signs Text/Narrative:: 1399 The patient was seen by the LEASING DIRECTOR. He had no sx on assessment. Telemetry showed the same rhythm that had when he was here this AM, Atrial Fib wit PVCs. 0 Called [facility] and discussed the case with Dr Carrasco, dealership general manager surgical product sales consultant. She advised that if patient is not dizzy or passing out with the palpitations,that he should remained on his Metoprol 50mg po BID and jst wait until his Pacer Consult on May [address] Fair. Cardiology recommendation was discussed with the patient and his family. During discussion with family, there was some confusion as to the dose of Metoprolol is is taking..25mg or 50mg. It was explained to the family to clarify this with the patient and make sure patient is taking 50mg po BID. Written instructions were given and the patient left the ER in stable condition. Last Recorded V/S: Last Vital Signs Temp 37.0 C 04/06/21 14:00 Pulse 94 04/06/21 14:00 Resp 20 04/06/21 14:00 BP 144/89 H 04/06/21 14:00 Pulse Ox 96 04/06/21 14:00 Departure - Departure Time of Disposition: 14:41 Disposition: Home, Self-Care 01 Condition: Good Clinical Impression: Palpitations, Tachy-mann syndrome Atrial fibrillation Qualifiers: Atrial fibrillation type: longstanding persistent Qualified Code(s): I48.11 - Longstanding persistent atrial fibrillation - Discharge Information Instructions: Atrial Fibrillation Referrals: Yolanda Nassar DO [Primary Care Provider] - Additional Instructions: -Make sure that your Metoprolol dose is 50mg AM and PM. -Keep your Cardiology appt for May 16 in [place] -If the palpitations occur and stop after sitting down, do not worry about them. If you get dizzy or pas out, then you need to come to the hospital. LEASING DIRECTOR today discussed plan of care with Dr Carrasco, the [place] Attendant surgical product sales consultant. -Return to the ER as needed Sepsis Event Note (ED) - Focused Exam Vital Signs: Vital Signs Temp Pulse Resp BP Pulse Ox 04/06/21 14:00 37.0 C 94 20 144/89 H 96 - Assessment/Plan Assessment:: 1)Palpitations 2)Atrial Fib 3)Tachy-Mann Syndrome Plan: As above
[2021-04-06 14:19] VITALS: BP 144/89; PULSE 94
== END 2021-04-06 14:50 | disposition home or self-care (01) ==
LOC: VM.ED 13:53
DX: I48.11 Longstanding persistent atrial fibrillation (principal); I49.5 Sick sinus syndrome; I25.10 Atherosclerotic heart disease of native coronary artery without angina pectoris; I13.0 Hypertensive heart and chronic kidney disease with heart failure and stage 1 through stage 4 chronic kidney disease, or unspecified chronic kidney disease; N18.2 Chronic kidney disease, stage 2 (mild); I50.9 Heart failure, unspecified; E78.00 Pure hypercholesterolemia, unspecified; J44.9 Chronic obstructive pulmonary disease, unspecified; E66.9 Obesity, unspecified; Z68.30 Body mass index [BMI] 30.0-30.9, adult; Z88.8 Allergy status to other drugs, medicaments and biological substances; Z88.1 Allergy status to other antibiotic agents; Z79.899 Other long term (current) drug therapy; Z79.01 Long term (current) use of anticoagulants
CPT/HCPCS: 99284

== ENCOUNTER 2021-09-13 09:44 | Emergency (ER) | payer MEDICARE, BC ==
--- NOTE | 2021-09-13 10:34 | EDM.PDOC ---
ED HPI GENERAL MEDICAL PROBLEM - General Chief Complaint: Respiratory Problem Stated Complaint: FATIGUE Time Seen by Provider: 09/13/21 10:10 Source of Information: Reports: Patient History Limitations: Reports: No Limitations - History of Present Illness INITIAL COMMENTS - FREE TEXT/NARRATIVE: Jani is an 89 year old male who presents to ER with complaints of increased shortness of breath this am. States started when he awoke in bed this am. Platinum like couldn't get enough air. Does live at the assisted living at [facility], called for a nurse. Oxygen sats were 95%. States wears 1.5 liters of oxygen in his CPAP machine and did have that on. Dr. Nassar reported to nurse that patient has been complaining of this more as of late, was evaluated on Friday. Had labs. Started him on oxygen. He states took an Ativan last night, not yet today. Questions if either related to his heart or his lungs. Denies any chest pain. No diaphoresis. No nausea/vomiting or abdominal pain. Does have edema in her legs, chronic in nature. Onset: Today, Sudden Duration: Minutes:, Improving Location: Reports: Chest Severity: Mild Improves with: Reports: Rest, Other (oxygen) Associated Symptoms: Reports: Shortness of Breath, Weakness. Denies: Confusion, Chest Pain, Cough, Fever/Chills, Loss of Appetite, Nausea/Vomiting - Related Data Allergies Allergy/AdvReac Type Severity Reaction Status Date / Time levofloxacin [From Levaquin] Allergy Unknown Other Verified 09/13/21 11:04 fluvastatin sodium AdvReac Unknown Other Verified 09/13/21 11:04 [From Lescol] niacin AdvReac Unknown Other Verified 09/13/21 11:04 [From Niaspan Extended-Release] simvastatin [From Zocor] AdvReac Unknown Other Verified 09/13/21 11:04 Home Meds: Home Meds Multivitamin [Multi-Vitamin Daily] 1 each PO DAILY 10/23/13 [History] Pravastatin [Pravachol] 40 mg PO MOTH@199910/23/13 [History] amLODIPine [Norvasc] 5 mg PO DAILY 10/23/13 [History] Omeprazole [Prilosec] 1 tab PO ACDINNER 05/08/14 [History] Albuterol [Ventolin HFA] 1 - 2 puff INH Q4H PRN 11/13/14 [History] Furosemide 40 mg PO DAILY 11/13/14 [History] Sucralfate [Carafate] 1 gram PO DAILY 11/13/14 [History] Budesonide/Formoterol Fumarate [Symbicort 80-4.5 MCG] 2 puff INH BID PRN 04/27/16 [History] Dextran 70/Hypromellose [Artificial Tears] 1 drop EYEBOTH Q4H PRN 05/21/16 [History] Phytonadione [Vitamin K] 100 mcg PO DAILY 05/21/16 [History] lisinopriL [Prinivil] 20 mg PO DAILY 05/21/16 [History] Lactulose [Chronulac] 15 ml PO DAILY 03/25/19 [History] Potassium Chloride [Klor-Con M20] 40 meq PO BID 04/06/21 [History] Warfarin [Coumadin] 5 mg PO DAILY 04/06/21 [History] glipiZIDE [Glucotrol XL] 5 mg PO DAILY 04/06/21 [History] Albuterol/Ipratropium [DuoNeb 3.0-0.5 MG/3 ML] 3 ml INH BID 09/13/21 [History] Cyanocobalamin (Vitamin B-12) [Cyanocobalamin Injection] 1,000 mcg IJ Q30D 09/13/21 [History] DULoxetine [Cymbalta] 20 mg PO DAILY 09/13/21 [History] Fluorometholone [Fluorometholone 0.1% Ophth Susp] 1 drop EYELF BID 09/13/21 [History] LORazepam [Ativan] 0.5 mg PO BID PRN 09/13/21 [History] Past Medical History HEENT History: Reports: Cataract, Other (See Below) Other HEENT History: PINGUECULA (BENIGN THIN GROWTH OF TISSUE OVER SCLERA). 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 MYOPIA. ASTIGMATISM Cardiovascular History: Reports: Afib, CAD, Heart Failure, High Cholesterol, Hypertension, Pulmonary Hypertension Other Cardiovascular History: STENOSIS OF LEFT CAROTID ARTERY. ENDOCARDITIS. VENOUS INSUFFICIANCY. AORTIC STENOSIS Respiratory History: Reports: Asthma, COPD, Sleep Apnea, SOB Other Respiratory History: PULMONARY HYPERINFLATION Other Gastrointestinal History: SMALL BOWEL OBSTRUCTION. HERNIA. DIARRHEA Genitourinary History: Reports: Urinary Incontinence Other Genitourinary History: BPH (BENIGN PROSTATIC HYPERPLASIA). CHRONIC KIDNEY DISEASE, STAGE 2 (MILD). MALIGNANT NEOPLASM PROSTATE Musculoskeletal History: Reports: Back Pain, Chronic Other Musculoskeletal History: FACET HYPERTROPHY OF LUMBAR REGION. LUMBAR DEGENERATIVE DISC DISEASE Neurological History: Reports: CVA Other Neuro History: HERNIA CEREBRI Psychiatric History: Reports: Other (See Below) Other Psychiatric History: PAIN MEDICATION AGREEMENT Endocrine/Metabolic History: Reports: Obesity/BMI 30+, Other (See Below) Other Endocrine/Metabolic History: PREDIABETES Hematologic History: Reports: Anemia Other Hematologic History: VITAMIN D DEFICIENCY. LEUKOCYTOSIS Oncologic (Cancer) History: Reports: Prostate Other Oncologic History: HX OF CHEMOTHERAPY. HX OF RADIATION THERAPY. BASAL CELL CARCINOMA OF SKIN. RECTAL CANCER - Past Surgical History Head Surgeries/Procedures: Reports: None Cardiovascular Surgical History: Reports: Coronary Artery Bypass GI Surgical History: Reports: Cholecystectomy, Colonoscopy, Colostomy, EGD, Hernia Repair/Other Other GI Surgeries/Procedures: INTESTINAL RESECTION. COLON SURGERY Social & Family History - Family History Family Medical History: No Pertinent Family History - Tobacco Use Tobacco Use Status *Q: Unknown Ever Used Tobacco - Caffeine Use Caffeine Use: Reports: Coffee ED ROS GENERAL - Review of Systems Review Of Systems: See Below Constitutional: Denies: Fever, Chills, Malaise, Weakness, Fatigue, Decreased Appetite HEENT: Denies: Ear Pain, Sinus Problem, Throat Pain, Vertigo Respiratory: Reports: Shortness of Breath. Denies: Cough Cardiovascular: Reports: Edema. Denies: Chest Pain, Lightheadedness Endocrine: Denies: Fatigue GI/Abdominal: Denies: Abdominal Pain, Nausea, Vomiting : Reports: No Symptoms Musculoskeletal: Reports: No Symptoms Skin: Reports: No Symptoms Neurological: Denies: Dizziness, Headache, Syncope ED EXAM, GENERAL - Physical Exam Exam: See Below Exam Limited By: No Limitations General Appearance: Alert, WD/WN, No Apparent Distress Ears: Normal External Exam, Normal TMs Nose: Normal Inspection, Normal Mucosa, No Blood Throat/Mouth: Normal Inspection, Normal Oropharynx Head: Normocephalic Neck: Normal Inspection, Supple, Non-Tender Respiratory/Chest: No Respiratory Distress, Decreased Breath Sounds Cardiovascular: Irregularly Irregular GI/Abdominal: Normal Bowel Sounds, Soft, Non-Tender Extremities: Normal Inspection, Pedal Edema (1+ pitting in right lowe extremity) Neurological: Alert, Oriented Skin Exam: Warm, Dry #1 Interpretation EKG Date: 09/13/21 Rhythm: A-Fib P-Wave: Absent QRS: Normal ST-T: Normal QT: Prolonged Comparison: No Change Course - Vital Signs Last Recorded V/S: Last Vital Signs Temp 96.2 F L 09/13/21 11:13 Pulse 82 09/13/21 11:13 Resp 20 09/13/21 11:13 BP 125/82 09/13/21 11:13 Pulse Ox 96 09/13/21 11:13 - Orders/Labs/Meds Orders: Active Orders 24 hr Category Date Time Status EKG 12 Lead [EKG Documentation Completion] [RC] STAT Care 09/13/21 10:27 Active Labs: Laboratory Tests 09/13/21 09/13/21 09/13/21 Range/Units 10:35 10:35 10:35 WBC 12.2 H (4.0-10.0) x10^3/uL RBC 4.47 L (4.5-6.0) x10^6/uL Hgb 12.5 L (14.0-18.0) g/dL Hct 37.5 L (40.0-52.0) % MCV 83.9 (78.0-93.0) fL MCH 28.0 (26.0-32.0) pg MCHC 33.3 (32.0-36.0) g/dL RDW Coeff of Roberta 15.1 H (10.0-15.0) % Plt Count 213 (130-400) x10^3/uL Add Manual Diff Yes Neutrophils % (Manual) 43 L (50-80) % Band Neutrophils % 1 (0-6) % Lymphocytes % (Manual) 50 (25-50) % Monocytes % (Manual) 3 (2-11) % Eosinophils % (Manual) 3 (0-4) % Absolute Neutrophils 5.4 (1.8-7.7) x10^3/uL Lymphocytes # (Manual) 6.1 H (1.0-4.8) x10^3/uL Monocytes # (Manual) 0.4 (0.0-0.8) x10^3/uL Eosinophils # (Manual) 0.4 (0.0-0.5) x10^3/uL Platelet Estimate Decreased L Anisocytosis 1+ slight H PT (9.9-12.5) SEC INR (2.0-3.5) D-Dimer, Quantitative 0.37 (<=0.58) mg/LFEU Sodium 140 (136-145) mmol/L Potassium 3.7 (3.5-5.1) mmol/L Chloride 103 (98-107) mmol/L Carbon Dioxide 29 (21-32) mmol/L Anion Gap 11.7 (5-15) mmol/L BUN 16 (7-18) mg/dL Creatinine 1.0 (0.70-1.30) mg/dL Est Cr Clr Drug Dosing TNP Estimated GFR (MDRD) > 60 Glucose 169 H (70-99) mg/dL Calcium 8.7 (8.5-10.1) mg/dL Corrected Calcium 9.3 (8.5-10.1) mg/dL Total Bilirubin 0.8 (0.2-1.0) mg/dL AST 16 (15-37) U/L ALT 26 (16-63) U/L Alkaline Phosphatase 68 (46-116) U/L Troponin I High Sens 11 (<=76) ng/L C-Reactive Protein < 0.2 (<=0.9) mg/dL NT-Pro-B Natriuret Pep 937 H (<=450) pg/mL Total Protein 6.5 (6.4-8.2) g/dL Albumin 3.3 L (3.4-5.0) g/dL Globulin 3.2 Albumin/Globulin Ratio 1.03 09/13/21 Range/Units 10:35 WBC (4.0-10.0) x10^3/uL RBC (4.5-6.0) x10^6/uL Hgb (14.0-18.0) g/dL Hct (40.0-52.0) % MCV (78.0-93.0) fL MCH (26.0-32.0) pg MCHC (32.0-36.0) g/dL RDW Coeff of Roberta (10.0-15.0) % Plt Count (130-400) x10^3/uL Add Manual Diff Neutrophils % (Manual) (50-80) % Band Neutrophils % (0-6) % Lymphocytes % (Manual) (25-50) % Monocytes % (Manual) (2-11) % Eosinophils % (Manual) (0-4) % Absolute Neutrophils (1.8-7.7) x10^3/uL Lymphocytes # (Manual) (1.0-4.8) x10^3/uL Monocytes # (Manual) (0.0-0.8) x10^3/uL Eosinophils # (Manual) (0.0-0.5) x10^3/uL Platelet Estimate Anisocytosis PT 19.5 H D (9.9-12.5) SEC INR 1.8 L (2.0-3.5) D-Dimer, Quantitative (<=0.58) mg/LFEU Sodium (136-145) mmol/L Potassium (3.5-5.1) mmol/L Chloride (98-107) mmol/L Carbon Dioxide (21-32) mmol/L Anion Gap (5-15) mmol/L BUN (7-18) mg/dL Creatinine (0.70-1.30) mg/dL Est Cr Clr Drug Dosing Estimated GFR (MDRD) Glucose (70-99) mg/dL Calcium (8.5-10.1) mg/dL Corrected Calcium (8.5-10.1) mg/dL Total Bilirubin (0.2-1.0) mg/dL AST (15-37) U/L ALT (16-63) U/L Alkaline Phosphatase (46-116) U/L Troponin I High Sens (<=76) ng/L C-Reactive Protein (<=0.9) mg/dL NT-Pro-B Natriuret Pep (<=450) pg/mL Total Protein (6.4-8.2) g/dL Albumin (3.4-5.0) g/dL Globulin Albumin/Globulin Ratio - Re-Assessments/Exams Free Text/Narrative Re-Assessment/Exam: 09/13/21 11:20 Labs are unremarkable, stable in comparison to previous evaluation. Discussed with Dr. Nassar as well as patient. Was given ATivan earlier in the week as felt some of his complaints of shortness of breath were related to anxiety. Explained to patient he could use his oxygen at home if needed when short of breath, take a neb treatment or an ativan. Departure - Departure Time of Disposition: 11:21 Disposition: Home, Self-Care 01 Condition: Good Clinical Impression: Shortness of breath - Discharge Information *PRESCRIPTION DRUG MONITORING PROGRAM REVIEWED*: No *COPY OF PRESCRIPTION DRUG MONITORING REPORT IN PATIENT CEE: No Instructions: Shortness of Breath, Adult, [id number] Referrals: Yolanda Nassar DO [Primary Care Provider] - Forms: ED Department Discharge Additional Instructions: 1. Continue same meds 2. Can use oxygen during day if needed. May take a neb treatment if wheezy and short of breath. Use Ativan if short of breath an anxious. 3. Follow up with Dr. Nassar for any new concerns or persisting complaints. Sepsis Event Note (ED) - Focused Exam Vital Signs: Vital Signs Temp Pulse Resp BP Pulse Ox 09/13/21 11:13 96.2 F L 82 20 125/82 96 - My Orders Last 24 Hours: My Active Orders 09/13/21 10:27 EKG 12 Lead [EKG Documentation Completion] [RC] STAT - Assessment/Plan Last 24 Hours: My Active Orders 09/13/21 10:27 EKG 12 Lead [EKG Documentation Completion] [RC] STAT
[2021-09-13 11:07] LABS: ANION GAP 11.7 mmol/L (5-15); CHLORIDE,CL 103 mmol/L (98-107); SODIUM,NA 140 mmol/L (136-145)
--- NOTE | 2021-09-13 11:07 | CR ---
[id number] RAD/RAD Chest PA And Lateral EXAM: RAD Chest PA And Lateral INDICATION: SHORTNESS OF BREATH. COMPARISON: April 06, 2021. DISCUSSION: Median sternotomy wires. Evidence of prior coronary artery bypass graft. Cardiomediastinal silhouette is normal in size and contour. No infiltrate, effusion, pneumothorax, or edema. Pulmonary hyperinflation. Bibasilar subsegmental atelectasis and/or scarring. IMPRESSION: No acute cardiopulmonary abnormality. Monty Sears DO 09/13/21 2480 Thank you for allowing us to participate in the care of your patient.
[2021-09-13 11:20] VITALS: BP 125/82; PULSE 82
== END 2021-09-13 11:30 | disposition home or self-care (01) ==
LOC: VM.ED 09:44
DX: R06.02 Shortness of breath (principal); J44.9 Chronic obstructive pulmonary disease, unspecified; E66.9 Obesity, unspecified; Z68.30 Body mass index [BMI] 30.0-30.9, adult; Z79.899 Other long term (current) drug therapy; Z88.1 Allergy status to other antibiotic agents; Z88.8 Allergy status to other drugs, medicaments and biological substances
CPT/HCPCS: 36415; 71046; 80053; 83880; 84484; 85025; 85379; 85610; 86140; 93005; 93010; 99284; 99285-25

== ENCOUNTER 2021-10-05 20:29 | Emergency (ER) | payer MEDICARE, BC ==
[2021-10-05] MEDS ORDERED: Sodium Chloride 0.9% 10 ML Syringe FLUSH PRN (20:40)
[2021-10-05] MEDS ORDERED: Sodium Chloride 0.9% 1,000 ML IV ONE (20:42)
--- NOTE | 2021-10-05 20:43 | EDM.PDOC ---
ED HPI GENERAL MEDICAL PROBLEM - General Stated Complaint: dizziness Time Seen by Provider: 10/05/21 20:35 Source of Information: Reports: Patient, EMS, EMS Notes Reviewed, Old Records History Limitations: Reports: No Limitations - History of Present Illness INITIAL COMMENTS - FREE TEXT/NARRATIVE: Patient is here for dizziness. He states it has been going on for several days. He has had vertigo in the past and this is different. Feels like the room is spinning. Did eppley maneuvers about a year ago. Saw his pcp recently for this and had a heart monitor, labs and inr check. Was last seen yesterday. no imaging for this. Has had his covid shots and booster 3 weeks ago. some shortness of breath, cough minimal. dizziness worse with standing. No head injury. Lives at assisted living. called [facility] for transport due to inability to drive. No history of stroke, no idea what his INR was Onset: Unknown/Unsure Duration: Getting Worse - Related Data Allergies Allergy/AdvReac Type Severity Reaction Status Date / Time levofloxacin [From Levaquin] Allergy Unknown Other Verified 09/13/21 11:04 fluvastatin sodium AdvReac Unknown Other Verified 09/13/21 11:04 [From Lescol] niacin AdvReac Unknown Other Verified 09/13/21 11:04 [From Niaspan Extended-Release] simvastatin [From Zocor] AdvReac Unknown Other Verified 09/13/21 11:04 Home Meds: Home Meds Multivitamin [Multi-Vitamin Daily] 1 each PO DAILY 10/23/13 [History] Pravastatin [Pravachol] 40 mg PO MOTH@199910/23/13 [History] amLODIPine [Norvasc] 5 mg PO DAILY 10/23/13 [History] Omeprazole [Prilosec] 1 tab PO ACDINNER 05/08/14 [History] Albuterol [Ventolin HFA] 1 - 2 puff INH Q4H PRN 11/13/14 [History] Furosemide 40 mg PO BID 11/13/14 [History] Sucralfate [Carafate] 1 gram PO DAILY PRN 11/13/14 [History] Budesonide/Formoterol Fumarate [Symbicort 80-4.5 MCG] 2 puff INH BID 04/27/16 [History] Dextran 70/Hypromellose [Artificial Tears] 1 drop EYEBOTH Q4H PRN 05/21/16 [History] Phytonadione [Vitamin K] 100 mcg PO DAILY 05/21/16 [History] lisinopriL [Prinivil] 20 mg PO DAILY 05/21/16 [History] Lactulose [Chronulac] 15 ml PO DAILY PRN 03/25/19 [History] Potassium Chloride [Klor-Con M20] 20 meq PO BID 04/06/21 [History] Warfarin [Coumadin] 5 mg PO DAILY 04/06/21 [History] glipiZIDE [Glucotrol XL] 5 mg PO DAILY 04/06/21 [History] Albuterol/Ipratropium [DuoNeb 3.0-0.5 MG/3 ML] 3 ml INH BID 09/13/21 [History] Cyanocobalamin (Vitamin B-12) [Cyanocobalamin Injection] 1,000 mcg IJ Q30D 09/13/21 [History] DULoxetine [Cymbalta] 20 mg PO DAILY 09/13/21 [History] Fluorometholone [Fluorometholone 0.1% Ophth Susp] 1 drop EYELF BID 09/13/21 [History] LORazepam [Ativan] 0.5 mg PO BID PRN 09/13/21 [History] Past Medical History HEENT History: Reports: Cataract, Other (See Below) Other HEENT History: PINGUECULA (BENIGN THIN GROWTH OF TISSUE OVER SCLERA). 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 MYOPIA. ASTIGMATISM Cardiovascular History: Reports: Afib, CAD, Heart Failure, High Cholesterol, Hypertension, Pulmonary Hypertension Other Cardiovascular History: STENOSIS OF LEFT CAROTID ARTERY. ENDOCARDITIS. VENOUS INSUFFICIANCY. AORTIC STENOSIS Respiratory History: Reports: Asthma, COPD, Sleep Apnea, SOB Other Respiratory History: PULMONARY HYPERINFLATION Other Gastrointestinal History: SMALL BOWEL OBSTRUCTION. HERNIA. DIARRHEA Genitourinary History: Reports: Urinary Incontinence Other Genitourinary History: BPH (BENIGN PROSTATIC HYPERPLASIA). CHRONIC KIDNEY DISEASE, STAGE 2 (MILD). MALIGNANT NEOPLASM PROSTATE Musculoskeletal History: Reports: Back Pain, Chronic Other Musculoskeletal History: FACET HYPERTROPHY OF LUMBAR REGION. LUMBAR DEGENERATIVE DISC DISEASE Neurological History: Reports: CVA Other Neuro History: HERNIA CEREBRI Psychiatric History: Reports: Other (See Below) Other Psychiatric History: PAIN MEDICATION AGREEMENT Endocrine/Metabolic History: Reports: Obesity/BMI 30+, Other (See Below) Other Endocrine/Metabolic History: PREDIABETES Hematologic History: Reports: Anemia Other Hematologic History: VITAMIN D DEFICIENCY. LEUKOCYTOSIS Oncologic (Cancer) History: Reports: Prostate Other Oncologic History: HX OF CHEMOTHERAPY. HX OF RADIATION THERAPY. 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 COLON SURGERY Social & Family History - Family History Family Medical History: No Pertinent Family History - Caffeine Use Caffeine Use: Reports: Coffee - Recreational Drug Use Recreational Drug Use: No Drug Use in Last 12 Months: No ED ROS GENERAL - Review of Systems Review Of Systems: See Below Constitutional: Reports: Fatigue HEENT: Reports: No Symptoms Respiratory: Reports: Shortness of Breath, Cough Cardiovascular: Reports: Dyspnea on Exertion. Denies: Chest Pain Endocrine: Reports: No Symptoms GI/Abdominal: Reports: No Symptoms : Reports: No Symptoms Musculoskeletal: Reports: No Symptoms Skin: Reports: No Symptoms Neurological: Reports: Dizziness Psychiatric: Reports: No Symptoms ED EXAM, NEURO - Physical Exam Exam: See Below Exam Limited By: No Limitations General Appearance: Alert, WD/WN, No Apparent Distress Eye Exam: Bilateral Eye: EOMI, Normal Inspection, PERRL Ears: Normal External Exam, Normal Canal, Hearing Grossly Normal, Normal TMs Nose: Normal Inspection, Normal Mucosa Throat/Mouth: Normal Inspection, Normal Lips, Normal Teeth, Normal Voice Head Exam: Atraumatic, Normocephalic Neck: Normal Inspection Respiratory/Chest: No Respiratory Distress, Lungs Clear Cardiovascular: Tachycardia (consistent with his A fib), Irregularly Irregular GI/Abdominal: Normal Bowel Sounds, Soft, Non-Tender Neurological: Alert, Normal Mood/Affect, Normal Dorsiflexion, CN II-XII Intact, Normal Plantar Flexion, Normal Gait, No Motor/Sensory Deficits, Oriented x 3 (negative pronator drift, no nystagmus, normal speech. normal strength, moves all extremities) Extremities: Normal Inspection, No Pedal Edema Psychiatric: Normal Affect Course - Orders/Labs/Meds Orders: Active Orders 24 hr Category Date Time Status EKG Documentation Completion [RC] STAT Care 10/05/21 20:40 Active Ang Head [CT] Stat Exams 10/05/21 20:40 Ordered Ang Neck [CT] Stat Exams 10/05/21 20:40 Ordered Chest 2V [CR] Stat Exams 10/05/21 20:42 Ordered Head wo Cont [CT] Stat Exams 10/05/21 20:40 Ordered UA RFX PASCUAL AND CULT IF INDIC [URIN] Stat Lab 10/05/21 20:40 Ordered Sodium Chloride 0.9% [Saline Flush] Med 10/05/21 20:40 Active 10 ml FLUSH ASDIRECTED PRN Peripheral IV Insertion Adult [OM.PC] Routine Oth 10/05/21 20:40 Ordered Medication Orders Sodium Chloride (Sodium Chloride 0.9% 10 Ml Syringe) 10 ml FLUSH ASDIRECTED PRN PRN Reason: Keep Vein Open Labs: Laboratory Tests 10/05/21 10/05/21 10/05/21 Range/Units 20:40 20:56 20:56 WBC 14.5 H (4.0-10.0) x10^3/uL RBC 4.55 (4.5-6.0) x10^6/uL Hgb 12.7 L (14.0-18.0) g/dL Hct 38.5 L (40.0-52.0) % MCV 84.6 (78.0-93.0) fL MCH 27.9 (26.0-32.0) pg MCHC 33.0 (32.0-36.0) g/dL RDW Coeff of Roberta 14.5 (10.0-15.0) % Plt Count 236 (130-400) x10^3/uL Immature Gran % (Auto) 0.40 (0.00-0.43) % Neut % (Auto) 43.9 L (50.0-80.0) % Lymph % (Auto) 47.1 (25.0-50.0) % Coles % (Auto) 6.5 (2.0-11.0) % Eos % (Auto) 1.7 (0.0-4.0) % Baso % (Auto) 0.4 (0.2-1.2) % Neut # (Auto) 6.4 (1.8-7.7) x10^3/uL Lymph # (Auto) 6.8 H (1.0-4.8) x10^3/uL Coles # (Auto) 1.0 H (0.0-0.8) x10^3/uL Eos # (Auto) 0.3 (0.0-0.5) x10^3/uL Baso # (Auto) 0.1 (0.0-0.2) x10^3/uL Immature Gran # (Auto) 0.06 (0.00-0.07) x10^3/uL PT (9.9-12.5) SEC INR (2.0-3.5) Sodium 140 (136-145) mmol/L Potassium 3.8 (3.5-5.1) mmol/L Chloride 101 (98-107) mmol/L Carbon Dioxide 31 (21-32) mmol/L Anion Gap 11.8 (5-15) mmol/L BUN 20 H (7-18) mg/dL Creatinine 1.1 (0.70-1.30) mg/dL Est Cr Clr Drug Dosing TNP Estimated GFR (MDRD) > 60 Glucose 209 H (70-99) mg/dL Calcium 9.0 (8.5-10.1) mg/dL Corrected Calcium 9.4 (8.5-10.1) mg/dL Total Bilirubin 0.7 (0.2-1.0) mg/dL AST 21 (15-37) U/L ALT 30 (16-63) U/L Alkaline Phosphatase 71 (46-116) U/L Troponin I High Sens 11 (<=76) ng/L Total Protein 7.0 (6.4-8.2) g/dL Albumin 3.5 (3.4-5.0) g/dL Globulin 3.5 Albumin/Globulin Ratio 1.00 Influenza Type A RNA Negative (NEGATIVE) RSV RNA (INAAT) Negative (NEGATIVE) Influenza Type B RNA Negative (NEGATIVE) SARS-CoV-2 RNA (SHAWANDA) Negative (NEGATIVE) 10/05/21 Range/Units 20:56 WBC (4.0-10.0) x10^3/uL RBC (4.5-6.0) x10^6/uL Hgb (14.0-18.0) g/dL Hct (40.0-52.0) % MCV (78.0-93.0) fL MCH (26.0-32.0) pg MCHC (32.0-36.0) g/dL RDW Coeff of Roberta (10.0-15.0) % Plt Count (130-400) x10^3/uL Immature Gran % (Auto) (0.00-0.43) % Neut % (Auto) (50.0-80.0) % Lymph % (Auto) (25.0-50.0) % Coles % (Auto) (2.0-11.0) % Eos % (Auto) (0.0-4.0) % Baso % (Auto) (0.2-1.2) % Neut # (Auto) (1.8-7.7) x10^3/uL Lymph # (Auto) (1.0-4.8) x10^3/uL Coles # (Auto) (0.0-0.8) x10^3/uL Eos # (Auto) (0.0-0.5) x10^3/uL Baso # (Auto) (0.0-0.2) x10^3/uL Immature Gran # (Auto) (0.00-0.07) x10^3/uL PT 22.7 H (9.9-12.5) SEC INR 2.0 (2.0-3.5) Sodium (136-145) mmol/L Potassium (3.5-5.1) mmol/L Chloride (98-107) mmol/L Carbon Dioxide (21-32) mmol/L Anion Gap (5-15) mmol/L BUN (7-18) mg/dL Creatinine (0.70-1.30) mg/dL Est Cr Clr Drug Dosing Estimated GFR (MDRD) Glucose (70-99) mg/dL Calcium (8.5-10.1) mg/dL Corrected Calcium (8.5-10.1) mg/dL Total Bilirubin (0.2-1.0) mg/dL AST (15-37) U/L ALT (16-63) U/L Alkaline Phosphatase (46-116) U/L Troponin I High Sens (<=76) ng/L Total Protein (6.4-8.2) g/dL Albumin (3.4-5.0) g/dL Globulin Albumin/Globulin Ratio Influenza Type A RNA (NEGATIVE) RSV RNA (INAAT) (NEGATIVE) Influenza Type B RNA (NEGATIVE) SARS-CoV-2 RNA (SHAWANDA) (NEGATIVE) Meds: Medications Generic Name Dose Route Start Last Admin Trade Name Freq PRN Reason Stop Dose Admin Sodium Chloride 10 ml 10/05/21 20:40 Sodium Chloride 0.9% 10 Ml Syringe FLUSH ASDIRECTED PRN Keep Vein Open Discontinued Medications Generic Name Dose Route Start Last Admin Trade Name Freq PRN Reason Stop Dose Admin Sodium Chloride 1,000 mls @ 999 mls/hr 10/05/21 20:42 Normal Saline IV 10/05/21 21:42 ONETIME ONE - Radiology Interpretation Free Text/Narrative:: ct angio head and neck. no acute intracranial findings. patent head and neck CTA, multinodular goiter, non emergent ultrasound recommended. chest x-ray with cardiomegaly, no focal infiltrate or pleural effusion. minimal atelectasic fibrotic changes in left lower lung interpreted by radiologist - Re-Assessments/Exams Free Text/Narrative Re-Assessment/Exam: 10/05/21 21:15 will give fluids, check labs, ekg, covid. ct head and ct angios had and neck to rule out stroke. no neurological changes here. 10/05/21 23:31 note, EKg was not done by nursing. negative troponin, recent heart monitoring. no st elevation on monitor discussed with patient the need for close follow up, discussed could be vertigo, caused by new blood pressure medication and or anxiety medications. Discussed monitoring blood pressures, moving slower with position changes, possibly talking to pcp about anxiety and new blood pressure medications. 10/05/21 23:33 note, patient has CLL, history of leukocytosis Departure - Departure Time of Disposition: 23:24 Disposition: Home, Self-Care 01 Condition: Good Clinical Impression: Dizziness - Discharge Information *PRESCRIPTION DRUG MONITORING PROGRAM REVIEWED*: Not Applicable *COPY OF PRESCRIPTION DRUG MONITORING REPORT IN PATIENT CEE: Not Applicable Instructions: Dizziness, Apot-ld-Hpts Referrals: Yolanda Nassar, [Primary Care Provider] - Additional Instructions: We discussed moving slower with changes in positions, especially if you are having dizziness with this. We did discuss that your new blood pressure medication and or the anxiety medication may be causing this. Document your blood pressures when you are having symptoms. Testing today is normal, no signso f stroke. There is a Goiter ( swelling of the thyroid) noted on CT, follow up with PCP for this. Have the nurse at [facility] call your PCP to relay the message of your ED visit, the dizziness and concerns with medications. - My Orders Last 24 Hours: My Active Orders 10/05/21 20:40 EKG Documentation Completion [RC] STAT Ang Head [CT] Stat Ang Neck [CT] Stat Head wo Cont [CT] Stat UA RFX PASCUAL AND CULT IF INDIC [URIN] Stat Sodium Chloride 0.9% [Saline Flush] 10 ml FLUSH ASDIRECTED PRN Peripheral IV Insertion Adult [OM.PC] Routine 10/05/21 20:42 Chest 2V [CR] Stat - Assessment/Plan Last 24 Hours: My Active Orders 10/05/21 20:40 EKG Documentation Completion [RC] STAT Ang Head [CT] Stat Ang Neck [CT] Stat Head wo Cont [CT] Stat UA RFX PASCUAL AND CULT IF INDIC [URIN] Stat Sodium Chloride 0.9% [Saline Flush] 10 ml FLUSH ASDIRECTED PRN Peripheral IV Insertion Adult [OM.PC] Routine 10/05/21 20:42 Chest 2V [CR] Stat
[2021-10-05 21:18] LABS: CHLORIDE,CL 101 mmol/L (98-107); SODIUM,NA 140 mmol/L (136-145)
[2021-10-05 21:19] LABS: ANION GAP 11.8 mmol/L (5-15)
[2021-10-05 21:24] LABS: CORONAVIRUS COVID-19 NAA NEGATIVE (NEGATIVE)
[2021-10-05 21:25] LABS: RESPIRATORY SYNCYTIAL VIR NAA NEGATIVE (NEGATIVE)
[2021-10-05] MEDS ORDERED: Iopamidol 755 Mg/ML 100 ML Bottle IVPUSH ONE (23:31)
[2021-10-06 02:30] VITALS: BP 126/69; PULSE 65
--- NOTE | 2021-10-06 09:35 | CR ---
[id number] RAD/RAD Chest PA And Lateral EXAM: RAD Chest PA And Lateral INDICATION: Shortness of breath. COMPARISON: September 13, 2021. DISCUSSION: Evaluation mildly limited by technique. Mild linear scarring or atelectasis in both lung bases with possible mild superimposed left base infiltrates. Cardiomegaly without evidence of edema. Recorder overlies left lung base. Prior sternotomy. Tortuous thoracic aorta with arterial calcifications. IMPRESSION: 1. Bibasilar atelectasis and scarring with possible mild superimposed left base infiltrates. Alvarez Valentine MD 10/06/21 [id number] Thank you for allowing us to participate in the care of your patient.
--- NOTE | 2021-10-06 16:51 | CT ---
[id number] CT/CTA Head Neck EXAM: CT angiogram head and neck INDICATION: DIZZINESS COMPARISON: Head CT same date. DISCUSSION: Aortic arch: Diffuse hard plaque. No aneurysmal dilation, dissection or significant stenosis in the imaged portions of the arch. Plaque at the origins of the great vessels without significant stenosis and extending into the right subclavian artery. Right carotid artery: Mixed hard and soft plaque at the common carotid artery bifurcation and diffuse hard plaque in the cavernous segment of the ICA without significant stenosis, aneurysmal dilation or dissection. Left carotid artery: Hard plaque at the common carotid artery bifurcation and involving the cavernous segment of the ICA without significant stenosis, aneurysmal dilation, dissection or other acute findings. Right vertebral artery: Mild plaque at the origin and involving the intracranial segment without significant associated stenosis. Left vertebral artery: Mild scattered plaque involving the intracranial segment without significant stenosis, aneurysmal dilation, significant stenosis or other acute findings. Basilar artery: Normal in caliber. No significant stenosis or other abnormality. [place]: Conventional morphology. No vessel cut off, significant stenosis, aneurysm or vascular malformation is identified. Dural sinuses, jugular veins and cerebral veins: Limited evaluation of the cerebral veins, dural sinuses and jugular veins is unremarkable. Brain parenchyma: Unremarkable. The neck soft tissues: Scattered bilateral thyroid nodules in the left potentially measuring up to 37 mm and containing focal coarse calcification. Ultrasound may be useful for further characterization. Osseous structures: Gentle reversal of the cervical lordosis. Diffuse cervical spondylosis. IMPRESSION: 1. No acute findings. 2. Thyroid nodules. Ultrasound could provide further evaluation. Alvarez Valentine MD 10/06/21 [id number] Thank you for allowing us to participate in the care of your patient.
--- NOTE | 2021-10-06 17:11 | CT ---
[id number] CT/CT Head WO IV EXAM: NONCONTRAST HEAD CT INDICATION: DIZZINESS COMPARISON: None. DISCUSSION: Mild to moderate generalized atrophy. [id number] chronic small vessel ischemic changes. Small chronic right thalamic lacunar infarct. No mass effect or midline shift. No acute hemorrhage or extra-axial fluid collection. No acute territorial infarct is identified. A limited look at the orbits and paranasal sinuses is unremarkable. IMPRESSION: 1. No acute findings. Alvarez Valentine MD 10/06/21 [id number] Thank you for allowing us to participate in the care of your patient.
== END 2021-10-05 23:39 | disposition home or self-care (01) ==
LOC: VM.ED 20:29
DX: R42 Dizziness and giddiness (principal); I48.91 Unspecified atrial fibrillation; I25.10 Atherosclerotic heart disease of native coronary artery without angina pectoris; I11.0 Hypertensive heart disease with heart failure; I50.9 Heart failure, unspecified; E78.00 Pure hypercholesterolemia, unspecified; N40.0 Benign prostatic hyperplasia without lower urinary tract symptoms; Z88.1 Allergy status to other antibiotic agents; Z88.8 Allergy status to other drugs, medicaments and biological substances; Z79.01 Long term (current) use of anticoagulants; Z79.899 Other long term (current) drug therapy; Z20.822 Contact with and (suspected) exposure to COVID-19
CPT/HCPCS: 0241U; 36415; 70450; 70498; 71046; 80053; 84484; 85025; 85610; 99285; J7030; Q9967; 81003